=== PATIENT | male | born 1960 | race Caucasian/White ===

== ENCOUNTER 2019-03-17 11:26 | Inpatient (IN) ==
[2019-03-17] MEDS ORDERED: NS 1,000 ML IV PRN (11:53)
--- NOTE | 2019-03-17 12:12 | Diag Imaging Result Doc PS360 ---
CHEST-PORTABLE - 03/17/2019 INDICATION: stroke like symptoms COMPARISON: 05/25/2018 FINDINGS: There is a right central line in good position with the catheter tip at the lower SVC. There is probably some mild linear atelectasis in the left lung base. The lungs are clear. Heart size is normal. No pneumothorax or pleural effusion. IMPRESSION: No acute disease. Electronically signed by Mateo Knox 03/17/2019 12:09 PM
--- NOTE | 2019-03-17 12:39 | Diag Imaging Result Doc PS360 ---
CT HEAD W/O CONTRAST - 03/17/2019 INDICATION: stroke like symptoms COMPARISON: 05/25/2018 FINDINGS: The ventricles and sulci are normal in size and contour. No intracranial mass or hemorrhage. Stable moderate periventricular white matter chronic microvascular disease. There is an old lacunar in the left basal ganglia which was not present on previous exams. The skull is intact. The sinuses are clear. IMPRESSION: Chronic ischemic changes of the brain. Increasing stroke burden. No acute process. This exam was performed using automated exposure control, adjustment of mA or kV according to patient size, and/or use of iterative reconstruction technique Electronically signed by Mateo Knox 03/17/2019 12:37 PM
--- NOTE | 2019-03-17 12:43 | EKG Report ---
Test Performed on : 03/17/2019 11:39:16 AM Test Reason : Stroke like symptoms Blood Pressure : / mmHG Vent. Rate : 094 BPM Atrial Rate : 094 BPM P-R Int : 164 ms QRS Dur : 084 ms QT Int : 360 ms P-R-T Axes : 047 -21 055 degrees QTc Int : 450 ms Normal sinus rhythm. Normal ECG When compared with ECG of 05-AUG-2017 09:04, No significant change was found Unconfirmed Result
[2019-03-17 12:52] LABS: BASO# 0.04 X1000 (0.0-0.2); BASO% 0.5 % (0.0-0.8); EOS# 0.42 X1000 (0.0-0.7); EOS% 4.9 % (0.0-10.0); HEMATOCRIT 29.3 % (42.0-52.0); HEMOGLOBIN 10.3 g/dL (14.0-18.0); IMM GRAN# 0.02 X1000 (0.0-0.04); IMM GRAN% 0.2 % (0.0-0.5); LYMPH# 0.95 X1000 (1.2-3.4); LYMPH% 11.1 % (20.5-51.1); MCH 28.1 PG (27-31); MCHC 35.2 g/dL (33-37); MCV 80.1 FL (81-99); MONO# 0.93 X1000 (0.11-0.59); MONO% 10.9 % (1.7-9.3); MPV 10.9 FL (7.4-10.4); NEUT# 6.19 X1000 (1.4-6.5); NEUT% 72.4 % (42.2-75.2); PLT 216 X1000 (130-400); RBC 3.66 XMIL (4.7-6.1); WBC 8.55 X1000 (4.8-10.8)
[2019-03-17 13:15] LABS: INR 1.09; PROTIME 14.2 Seconds (11.0-16.0)
[2019-03-17 13:22] LABS: ALB/GLOB RATIO 1.7; CALCIUM 9.6 mg/dL (8.8-10.2); CREATININE 4.8 mg/dL (0.7-1.2); POTASSIUM 3.9 mmol/L (3.5-5.1); TOTAL BILIRUBIN 0.44 mg/dL (0.20-1.00); TOTAL PROTEIN 6.3 g/dL (6.3-8.3)
[2019-03-17] MEDS ORDERED: HUMULIN R IV ONE (13:52)
[2019-03-17] MEDS ORDERED: ASPIRIN PO ONE (14:07)
[2019-03-17 14:08] LABS: URINE SOURCE CLEAN CATCH
--- NOTE | 2019-03-17 14:10 | PROVIDER DOCUMENTATION ---
This chart was entered by Melina Echols Scribe, acting as scribe for Jeremi Hernández MD. HPI-Neurological Disorder - General Chief Complaint: Altered Mental Status Stated Complaint: CONFUSION Time Seen by Provider: 03/17/19 11:46 Source: patient, family (daughter) Allergies/Adverse Reactions: Patient Allergies Allergy/AdvReac Type Severity Reaction Status Date / Time No Known Allergies Allergy Verified 03/17/19 12:05 Home Medications: Home Medication List Medication Instructions Recorded Confirmed Last Taken Type Levothyroxine [Synthroid] 125 microgm PO DAILY 05/06/17 03/17/19 03/17/19 History Omeprazole [Prilosec] 20 mg PO DAILY@0700 08/05/17 03/17/19 03/17/19 History Losartan [Cozaar] 100 mg PO DAILY tablet 08/07/17 03/17/19 03/17/19 Rx ATORVAstatin [Lipitor] 40 mg PO QHS #30 tab 05/31/18 03/17/19 03/16/19 Rx Acetaminophen [Tylenol] 650 mg PO Q6H PRN PRN tablet 05/31/18 03/17/19 Unknown Rx Amlodipine [Norvasc] 10 mg PO DAILY #30 tab 05/31/18 03/17/19 03/17/19 Rx Bisacodyl [Dulcolax] 1 tab PO PRN PRN 03/17/19 03/17/19 03/17/19 History Cilostazol 1 tab PO BID 03/17/19 03/17/19 Unknown History Clopidogrel Bisulfate [Plavix] 1 tab PO DAILY 03/17/19 03/17/19 03/17/19 History Furosemide 2 tab PO BID 03/17/19 03/17/19 03/17/19 History Hydrocodone/Acetaminophen [[place] 1 tab PO TID PRN 03/17/19 03/17/19 03/17/19 History 10-325 Tablet] Insulin Humulin 70/30 [Humulin 40 unit SUBQ AC 03/17/19 03/17/19 Unknown History 70/30] Potassium Chloride 1 tab PO DAILY 03/17/19 03/17/19 03/17/19 History - History of Present Illness-Neuro Nature of Presenting Problem: Patient is a 58 year old male who presents with expressive aphasia. States aphasia started last night. Reports mild frontal headache. Daughter states patient has a history of CVA. Patient states similar symptoms with prior stroke. Denies weakness, numbness and tingling. Daughter states patient has not slept in 48 hours due to right foot pain. Daughter reports patient having a right femoral stent placed in [place] 3 weeks ago. Headache Location: reports: frontal Severity: reports: mild Onset/Duration: reports: last night Timing: reports: still present, improving Context: reports: impaired speech Character of Deficits: reports: impaired speech (expressive aphasia) Associated Symptoms: reports: headache Similar Symptoms Previously?: Yes Recently seen or treated by another doctor?: No Review of Systems - Adult - REVIEW OF SYSTEMS - ADULT Constitutional: reports: no symptoms reported. denies: chills, fever, fatique Eyes: reports: no symptoms reported Ears, Nose, Mouth & Throat: reports: no symptoms reported Cardiovascular: reports: no symptoms reported Respiratory: reports: no symptoms reported Gastrointestinal: reports: no symptoms reported Genitourinary: reports: no symptoms reported Musculoskeletal: reports: see HPI, other (right foot pain). denies: back pain, neck pain Integumentary: reports: no symptoms reported Neurological: reports: see HPI, headache/migraines (GUERRERO), other (expressive aphasia). denies: dizziness/vertigo Psychiatric: reports: no symptoms reported Endocrine: reports: no symptoms reported Hematologic/Lymphatic: reports: no symptoms reported Allergic/Immunologic: reports: no symptoms reported All Other Systems: Reviewed and Negative Past History - Adult - PAST MEDICAL HISTORY-ADULT Review of Records: reports: Old Records Reviewed, Social history reviewed & non-contributory. Major Childhood Illnesses: reports: denies history Cardiovascular: reports: HTN, hyperlipidemia Respiratory: reports: denies history Gastrointestinal: reports: denies history Obstetrical/Gynecological: reports: denies history Genitourinary: reports: denies history Musculoskeletal: reports: denies history Neurological: reports: CVA Endocrine/Immune: reports: Diabetes, thyroid disorder Other Conditions: reports: denies history - PRIOR SURGERIES/PROCEDURES Surgical/Procedure History: reports: appendectomy, tonsillectomy, orthopedic (extremity) - IMMUNIZATION STATUS Childhood Immunizations: See Nurse Assessment Flu Vaccine: See Nurse Assessment - FAMILY HISTORY Family History: reviewed, not pertinent - SOCIAL HISTORY Smoking: chew, less than 1 pack/day Provider spent 3-5 mins advising pt. on dangers of tobacco.: Discussed manners to quit use, and f/u contacts for add'l counseling. Substance Use: denies Physical Exam- Neurological - Physical Exam-Neuro Initial Vital Signs Reviewed: Yes General Appearance: alert, no apparent distress. negative: lethargic Eye Exam: bilateral eye: normal inspection, PERRL, EOMI HENMT: normocephalic/atraumatic, moist mucous membranes. negative: angioedema Head Injury: no evidence of injury. negative: active bleeding, ecchymosis Respiratory: chest non-tender, lungs clear, normal breath sounds. negative: crackles, rhonchi, stridor Cardiovascular: normal peripheral pulses, regular rate, rhythm. negative: tachycardia Abdominal Exam: normal bowel sounds, non tender, soft. negative: guarding Extremity: other (healing skin ulcer to right 2nd toe.). 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 negative: facial droop Motor/Sensory: no motor deficit, no sensory deficit. negative: pronator drift (R), pronator drift (L) Neurologic: no motor/sensory deficits, aphasia (expressive). negative: motor weakness, sensory deficit Psych/Mental Status: normal mood/affect. negative: anxious, paranoid Progress - PLAN OF CARE/RESULTS Progress/Plan/Lab Results: Vital Signs - 8 hr 03/17/19 11:30 03/17/19 11:47 03/17/19 11:48 Temperature 97.6 F Pulse Rate 79 Respiratory Rate 20 Blood Pressure 194/100 184/98 O2 Sat by Pulse Oximetry 100 99 100 03/17/19 12:00 03/17/19 12:01 03/17/19 12:23 Temperature Pulse Rate 92 H 94 H 91 H Respiratory Rate 24 19 12 Blood Pressure 163/85 178/83 O2 Sat by Pulse Oximetry 100 98 98 03/17/19 12:31 Temperature Pulse Rate 89 Respiratory Rate 19 Blood Pressure 171/90 O2 Sat by Pulse Oximetry 98 Laboratory Results - last 24 hr 03/17/19 03/17/19 03/17/19 11:35 12:38 12:38 WBC 8.55 RBC 3.66 L Hgb 10.3 L Hct 29.3 L MCV 80.1 L MCH 28.1 MCHC 35.2 RDW Std Deviation 13.0 Plt Count 216 MPV 10.9 H Immature Gran % (Auto) 0.2 Neut % (Auto) 72.4 Lymph % (Auto) 11.1 L Riley % (Auto) 10.9 H Eos % (Auto) 4.9 Baso % (Auto) 0.5 Immature Gran # (Auto) 0.02 Neut # (Auto) 6.19 Lymph # (Auto) 0.95 L Riley # (Auto) 0.93 H Eos # (Auto) 0.42 Baso # (Auto) 0.04 PT INR PTT (Actin FS) Sodium 137 Potassium 3.9 Chloride 100 Carbon Dioxide 19 L Anion Gap 18 BUN 53 H Creatinine 4.8 H Estimated GFR/1.73 m2 13 BUN/Creatinine Ratio 11 Glucose 323 H POC Glucose 309 H D Calculated Osmolality 301 Calcium 9.6 Total Bilirubin 0.44 AST 16 ALT 14 Alkaline Phosphatase 98 Troponin T Total Protein 6.3 Albumin 4.0 Globulin 2.3 Albumin/Globulin Ratio 1.7 Urine Source Urine Color Urine Turbidity Urine pH Ur Specific [place] Urine Protein Ur Glucose (Stick) Ur Ketones (Stick) Urine Blood Urine Nitrite Urine Bilirubin Urobilinogen Dipstick Urine Leukocytes Urine WBC (Auto) Urine RBC (Auto) U Epithel Cells (Auto) Urine Bacteria (Auto) Urine Crystals Small Round Cells Urine Casts Urine Yeast-like Cells Urine Opiates Screen Ur Oxycodone Screen Ur Methadone, Qual Ur Barbiturates Screen Ur Phencyclidine Scrn Ur Amphetamines Screen U Benzodiazepines Scrn Urine Cocaine Screen U Cannabinoids Screen 03/17/19 03/17/19 03/17/19 12:38 12:38 14:03 WBC RBC Hgb Hct MCV MCH MCHC RDW Std Deviation Plt Count MPV Immature Gran % (Auto) Neut % (Auto) Lymph % (Auto) Riley % (Auto) Eos % (Auto) Baso % (Auto) Immature Gran # (Auto) Neut # (Auto) Lymph # (Auto) Riley # (Auto) Eos # (Auto) Baso # (Auto) PT 14.2 INR 1.09 PTT (Actin FS) 29.0 Sodium Potassium Chloride Carbon Dioxide Anion Gap BUN Creatinine Estimated GFR/1.73 m2 BUN/Creatinine Ratio Glucose POC Glucose Calculated Osmolality Calcium Total Bilirubin AST ALT Alkaline Phosphatase Troponin T 0.045 Total Protein Albumin Globulin Albumin/Globulin Ratio Urine Source CLEAN CATCH Urine Color YELLOW Urine Turbidity CLEAR Urine pH 6.0 Ur Specific [place] 1.009 Urine Protein 70 A Ur Glucose (Stick) 300 A Ur Ketones (Stick) NEGATIVE Urine Blood SMALL A Urine Nitrite NEGATIVE Urine Bilirubin NEGATIVE Urobilinogen Dipstick NORMAL Urine Leukocytes NEGATIVE Urine WBC (Auto) <10 Urine RBC (Auto) <10 U Epithel Cells (Auto) <10 Urine Bacteria (Auto) NEGATIVE Urine Crystals NONE SEEN Small Round Cells Not Reportable Urine Casts NONE SEEN Urine Yeast-like Cells NONE SEEN Urine Opiates Screen Ur Oxycodone Screen Ur Methadone, Qual Ur Barbiturates Screen Ur Phencyclidine Scrn Ur Amphetamines Screen U Benzodiazepines Scrn Urine Cocaine Screen U Cannabinoids Screen 03/17/19 14:03 WBC RBC Hgb Hct MCV MCH MCHC RDW Std Deviation Plt Count MPV Immature Gran % (Auto) Neut % (Auto) Lymph % (Auto) Riley % (Auto) Eos % (Auto) Baso % (Auto) Immature Gran # (Auto) Neut # (Auto) Lymph # (Auto) Riley # (Auto) Eos # (Auto) Baso # (Auto) PT INR PTT (Actin FS) Sodium Potassium Chloride Carbon Dioxide Anion Gap BUN Creatinine Estimated GFR/1.73 m2 BUN/Creatinine Ratio Glucose POC Glucose Calculated Osmolality Calcium Total Bilirubin AST ALT Alkaline Phosphatase Troponin T Total Protein Albumin Globulin Albumin/Globulin Ratio Urine Source Urine Color Urine Turbidity Urine pH Ur Specific [place] Urine Protein Ur Glucose (Stick) Ur Ketones (Stick) Urine Blood Urine Nitrite Urine Bilirubin Urobilinogen Dipstick Urine Leukocytes Urine WBC (Auto) Urine RBC (Auto) U Epithel Cells (Auto) Urine Bacteria (Auto) Urine Crystals Small Round Cells Urine Casts Urine Yeast-like Cells Urine Opiates Screen PRESUMPTIVE POSITIVE A Ur Oxycodone Screen NONE DETECTED Ur Methadone, Qual NONE DETECTED Ur Barbiturates Screen NONE DETECTED Ur Phencyclidine Scrn NONE DETECTED Ur Amphetamines Screen NONE DETECTED U Benzodiazepines Scrn NONE DETECTED Urine Cocaine Screen NONE DETECTED U Cannabinoids Screen NONE DETECTED Orders Category Date Time Status Bladder Scan and Record Result ORDERED Care 03/17/19 14:07 Active Cardiac Monitoring DIRECTED Care 03/17/19 11:54 Active Finger Stick Blood Sugar (ED) DIRECTED Care 03/17/19 11:54 Completed Oxygen Therapy- ED Nursing DIRECTED Care 03/17/19 11:54 Active Saline Loc NOW Care 03/17/19 11:54 Active CHEST-PORTABLE [RAD] Stat Exams 03/17/19 11:[address] HEAD W/O CONTRAST [CT] Stat Exams 03/17/19 11:54 Completed CBC WITH ELECTRONIC DIFF [HEME] Stat Lab 03/17/19 12:38 Completed COMPREHENSIVE METABOLIC PANEL [CHEM] Stat Lab 03/17/19 12:38 Completed PROTIME WITH INR [COAG] Stat Lab 03/17/19 12:38 Completed PTT [COAG] Stat Lab 03/17/19 12:38 Completed TROPONIN T Stat Lab 03/17/19 12:38 Completed URINALYSIS W/POSS RFLX CULT [URINALYSIS] Stat Lab 03/17/19 14:03 Completed URINE DRUG SCREEN Stat Lab 03/17/19 14:03 Completed URINE MANUAL MICROSCOPIC [URINALYSIS] Stat Lab 03/17/19 14:03 Completed 0.9% Sodium Chloride Inj [Ns] 1,000 ml Med 03/17/19 11:53 Active IV 125 mls/hr Aspirin Med 03/17/19 14:07 Discontinued 325 mg PO NOW ONE Insulin Human Regular [Humulin R] Med 03/17/19 13:52 Discontinued 10 unit IV NOW ONE EKG [EKG] Stat Ther 03/17/19 11:54 Draft Result Diagrams: 03/17/19 12:38 03/17/19 12:38 - EKG 1 Time of EKG reading by physician:: 11:39 EKG Read and Signed by:: Jeremi Hernández EKG Interpretation (*Must complete 3 of following elements*): Normal Rate: 94 Rhythm: normal sinus rhythm [place]: normal QRS: normal MT Interval: normal ST Wave: normal Comments: normal ECG - XRAY 1 XRAY Study: Chest Impression: See EMR Report ( CHEST-PORTABLE - 03/17/2019 INDICATION: stroke like symptoms COMPARISON: 05/25/2018 FINDINGS: There is a right central line in good position with the catheter tip at the lower SVC. There is probably some mild linear atelectasis in the left lung base. The lungs are clear. Heart size is normal. No pneumothorax or pleural effusion. IMPRESSION: No acute disease. Electronically signed by Mateo Knox 03/17/2019 12:09 PM 03/17/19 1209 Interpreting Physician: Mateo Knox MD Dictated Date/Time: 03/17/19 1203 cc: Jeremi Hernández MD; Ez Ordonez MD) - CT/MRI 1 CT Study: Head Impression: See EMR Report (Signed CT HEAD W/O CONTRAST - 03/17/2019 INDICATION: stroke like symptoms COMPARISON: 05/25/2018 FINDINGS: The ventricles and sulci are normal in size and contour. No intracranial mass or hemorrhage. Stable moderate periventricular white matter chronic microvascular disease. There is an old lacunar in the left basal ganglia which was not present on previous exams. The skull is intact. The sinuses are clear. IMPRESSION: Chronic ischemic changes of the brain. Increasing stroke burden. No acute process. This exam was performed using automated exposure control, adjustment of mA or kV according to patient size, and/or use of iterative reconstruction technique Electronically signed by Mateo Knox 03/17/2019 12:37 PM 03/17/19 1237 Interpreting Physician: Mateo Knox MD Dictated Date/Time: 03/17/19 1235 cc: Jeremi Hernández MD; Ez Ordonez MD) - CONSULTS/PCP/HOSPITALIST Notification #1 *Consult/PCP/Hospitalist*: Lavinia Haddad MANAGEMENT ASSISTANT for Hospitalist Time Discussed: 14:08 Consult Disposition: Will see in ED, Admit Departure - Departure Date of Disposition Decision: 03/17/19 Time of Disposition Decision: 13:53 DIAGNOSIS: TIA (transient ischemic attack), Anemia, ARF (acute renal failure), Uncontrolled diabetes mellitus, HTN (hypertension) Disposition: ADMITTED INPATIENT 09 Certified Medical Emergency: Emergent Condition: Fair Referrals and Follow-Ups: Ez Ordonez MD [Primary Care Provider] - - Critical Care Note This patient required my direct & personal management of CC.: No Attestation - Physician/ FABI Attestation Patient care was provided by Advanced Practice Provider:: No The physician spent face to face time with patient:: Yes Advanced Practice Provider documentation review:: Supervising physician onsite and consulted in the evaluation and care of this patient. The physician did have a face to face encounter with the patient. - NIH Stroke Scale Level of Consciousness: 0-Alert LOC Questions (ask month and age): 0-Answers Both Correctly LOC Commands (ask to open & close eyes;make a fist, let go): 0-Obeys Both Correctly Best Gaze (horizontal eye movement): 0-Normal Visual (use finger movement, counting or visual threat): 0-No Visual Loss Facial Palsy (show teeth or raise eyebrows & close eyes tght: 0-Symmetrical Movement Motor Function-left arm: 0-Normal Motor Function-right arm: 0-Normal Motor Function-left le-Normal Motor Function-right le-Normal Limb Ataxia([id number], or heel to charles): 0-No Ataxia Sensory(pin prick to face,arms,trunk,legs-compare side/side): 0-No Ataxia Best Language(name item/read sentence.Ex-Down to Earth): 1-Mild to Moderate Aphasia Dysarthria(Pt read words or say words Ex.Mama,Tip-Top,Thanks: 0-Normal Articulation Extinction and Inattention: 0-Normal Stroke tPA Guidelines - Inclusion Criteria for IV tPA Onset <3 hours ago *OR* 3-4.5 hours ago: No This chart was documented by the indicated scribe, (Melina Echols, Maninder) and accurately reflects the services I performed and decisions made by me, Jeremi Hernández MD, as attested by the provider's signature.
[2019-03-17 14:11] LABS: BILIRUBIN URINE NEGATIVE (NEGATIVE); BLOOD URINE SMALL (NEGATIVE); COLOR YELLOW; GLUCOSE URINE 300 mg/dL (NEGATIVE); KETONE URINE NEGATIVE (NEGATIVE); LEUKOCYTES URINE NEGATIVE (NEGATIVE); NITRITE URINE NEGATIVE (NEGATIVE); PROTEIN URINE 70 mg/dL (NEGATIVE); SP GRAVITY URINE 1.009; TURBIDITY URINE CLEAR (CLEAR); UROBILINOGEN URINE NORMAL (NORMAL)
[2019-03-17 14:13] LABS: UR EPITHELIAL CELLS <10 /HPF (<10); URINE BACTERIA NEGATIVE /HPF; URINE RBC <10 /HPF (<10); URINE WBC <10 /HPF (<10)
[2019-03-17 14:24] LABS: URINE CASTS NONE SEEN; URINE CRYSTALS NONE SEEN; URINE YEAST NONE SEEN
[2019-03-17 14:34] LABS: UR AMPHETAMINES QUAL NONE DETECTED (NONE DETECT); UR BARBITUATES QUAL NONE DETECTED (NONE DETECT); UR BENZODIAZEPIN QUAL NONE DETECTED (NONE DETECT); UR CANNABINOIDS QUAL NONE DETECTED (NONE DETECT); UR COCAINE QUAL NONE DETECTED (NONE DETECT); UR METHADONE QUAL NONE DETECTED (NONE DETECT); UR OPIATES QUAL PRESUMPTIVE POSITIVE (NONE DETECT); UR OXYCODONE QUAL NONE DETECTED (NONE DETECT); UR PCP QUAL NONE DETECTED (NONE DETECT)
[2019-03-17] MEDS ORDERED: ZOFRAN IV ONE (15:14)
[2019-03-17] MEDS ORDERED: DILAUDID IV ONE (15:14)
[2019-03-17 16:36] LABS: UR CREAT RANDOM 54.2 mg/dL (14-26); UR PROT RANDOM 46.3 mg/dL
[2019-03-17] MEDS: HUMALOG SUBQ SCH ×2 (17:31→22:02)
[2019-03-17] MEDS: NS 1,000 ML IV SCH (17:32)
[2019-03-17] MEDS ORDERED: MISC. PHARMACY COMMUNICATION SCH (18:00)
[2019-03-17] MEDS: NORCO-7.5 PO PRN (18:53)
[2019-03-17] MEDS: MAXIPIME 1 GM in NS 50 ML IV SCH (21:54)
[2019-03-17] MEDS: FLOMAX PO SCH (21:54)
[2019-03-17] MEDS: ZYVOX PO SCH (21:54)
--- NOTE | 2019-03-17 22:53 | HISTORY AND PHYSICAL ---
ADDENDUM: I saw the patient [id number] and fully agree with the assessment and plan of nurse practitioner, Lavinia Stallings. This is a 58-year-old gentleman who 3 weeks ago had right femoral artery stent placement by Dr. Bruce and has been getting IV antibiotics through [facility] for infected ulcers as well as bacteremia on blood cultures found positive at [facility]. We do not have access to those blood cultures at this time, however. Since then, he has been getting cefepime and vancomycin that was changed to daptomycin after his renal function started getting worse. On 02/27/2019, his creatinine levels were found to be 1.1 and then gradually worsened to 2.9 on March 13, 3.6 on March 16 yesterday and 4.8 today. He appears to be dry, and I believe acute kidney injury could be multifactorial with a hypovolemia as well as vancomycin associated. He also had a stent in the right femoral artery. Although I do not palpate the dorsalis pedis very well in his right foot, the popliteal artery is palpable, and right foot is very warm to touch. He will receive judicious IV fluids, and we have consulted Dr. Ezra Metzger from infectious diseases who has recommended him to be treated with cefepime and Zyvox while we get those culture results from [facility]. I am also going to place a call to his vascular surgeon, Dr. Bruce, for whom Dr. Dodge is covering tonight. We will let them know of the patient's condition since the patient's has indicated that they want to be transferred to [facility] in case they need any procedures to be done. Meanwhile, we are also going to consult Dr. Aguila from Nephrology service to further assist us in taking care of this nice gentleman. Further recommendations will be given as per hospital course. cc: Zulma Gerardo MD
--- NOTE | 2019-03-17 23:41 | HISTORY AND PHYSICAL ---
CHIEF COMPLAINT: Increased confusion, trouble speaking. HISTORY OF PRESENT ILLNESS: This is a 58-year-old gentleman with a history of hypertension, CVA, hypothyroid, diabetes mellitus type 1, peripheral neuropathy and persistent ulcers right. who is 3 weeks status post right femoral stent placement in [place].. Most of the history is taken from the daughter as the patient does have expressive aphasia and he does change subjects frequently during a conversation. The daughter reports increasing expressive aphasia as well as random thoughts. The daughter states that Mr. Young has not slept in 48 hours and he did not sleep well for a few nights prior to that. She began to notice a change in his speech during the day yesterday and last night. She stated that he had aphasia similar to when he had a stroke about 10 years ago. They denied any facial drooping, any change in his walking, difficulty swallowing or any change in strength of extremities. Mr. Young was discharged from [facility] approximately 3 weeks ago after having positive cultures on IV Vancomycin and Cefepime. She is unaware of the source of the culture. His creatinine was being monitored by home health infusion. He had a creatinine of 1.4 on 03/06, on 03/13 creatinine of 2.9, on 03/16 creatinine was 3.6 and today creatinine is 4.8. The daughter states that last week they changed him from vancomycin to daptomycin due to rising Creatnine. She reports "a huge reaction turning red and itching all over." after the first dose. PAST MEDICAL HISTORY: Hypertension, diabetes mellitus, left basal ganglia infarct in May 2018, diabetes mellitus type 1 poor control, peripheral neuropathy, hypothyroid, gastroesophageal reflux disease. PAST SURGICAL HISTORY: Appendectomy, left shoulder surgery, right knee surgery and right femoral artery stent. SOCIAL HISTORY: He lives at home. Denies alcohol, tobacco, or illicit drug use. ALLERGIES: Benadryl and promethazine with unknown reaction. Daptomycin caused redness and itching. REVIEW OF SYSTEMS: Discussed with the patient with pertinent positives stated in the HPI. He denied any syncope or dizziness, any chest pain or palpitations, any nausea, vomiting, diarrhea, constipation, black or bloody vomitus or stools, hematuria, dysuria, frequency, urgency. PHYSICAL EXAMINATION: GENERAL: This is a 58-year-old gentleman who is lying on the stretcher in the emergency room in no distress. VITAL SIGNS: Blood pressure is 149/68 with heart rate of 88, respirations 18, temperature 98.6 degrees with room air saturations 98 to 100. CARDIOVASCULAR: Regular rate and rhythm. S1 and S2 appreciated. He has no murmur. PULMONARY: Breath sounds are clear with no increased work of breathing noted. GASTROINTESTINAL: Soft, nontender, nondistended. Bowel sounds in all 4 quadrants. GENITOURINARY: He has no CVA or suprapubic tenderness. SKIN: Warm and dry. He does have ulcers noted between his 2nd and 3rd toes. LABS: WBC is 8.5 with hemoglobin 10.3, hematocrit 29.3, and platelets 216,000. Sodium 137, potassium 3.9, BUN 53, creatinine 4.8 with a glucose of 323. Urinalysis is essentially negative. Urine drug screen is presumptive positive for opiates. CT of the head revealed chronic ischemic change of the brain, increasing stroke burden. No acute process. Chest x-ray revealed no acute disease. ASSESSMENT AND PLAN: 1. Transient ischemic attack. 2. Anemia. 3. Acute renal failure presumed secondary to vancomycin and/or urine retention. 4. Uncontrolled diabetes mellitus. 5. Hypertension. 6. Recent right femoral stent placement. 7. Urine retention PLAN: The patient will be admitted to the hospital, placed on telemetry with neurovascular checks every 4 hours to his right lower extremity, pattern blood glucose with sliding scale insulin. I did speak with Dr. Ezra Metzger regarding the patient's antibiotic regimen. Will start Zyvox 600 mg p.o. q.12 hours as well as cefepime dosed per pharmacy for renal dosing. IV hydration. check urine electrolytes. Hold any renal toxic medications and renal dose needed medications accordingly. Bladder scan was [address] Zayas catheter as part of his renal profile, a TSH and a CBC in the morning. identify his home medications and continue as appropriate. Plan discussed with Dr. Gerardo. Further treatments pending hospital course. Dictated by KWABENA Penny for Zulma Gerardo MD cc: KWABENA Penny MD [facility]
[2019-03-18] MEDS: NORCO-7.5 PO PRN ×2 (06:22→11:39)
[2019-03-18] MEDS: HUMALOG SUBQ SCH (06:52)
[2019-03-18 07:04] LABS: BASO# 0.04 X1000 (0.0-0.2); BASO% 0.5 % (0.0-0.8); EOS# 0.37 X1000 (0.0-0.7); EOS% 4.6 % (0.0-10.0); HEMATOCRIT 29.7 % (42.0-52.0); HEMOGLOBIN 10.2 g/dL (14.0-18.0); IMM GRAN# 0.02 X1000 (0.0-0.04); IMM GRAN% 0.2 % (0.0-0.5); LYMPH% 16.2 % (20.5-51.1); MCH 28.1 PG (27-31); MCHC 34.3 g/dL (33-37); MCV 81.8 FL (81-99); MONO# 0.87 X1000 (0.11-0.59); MONO% 10.8 % (1.7-9.3); MPV 11.2 FL (7.4-10.4); NEUT# 5.42 X1000 (1.4-6.5); NEUT% 67.7 % (42.2-75.2); PLT 208 X1000 (130-400); RBC 3.63 XMIL (4.7-6.1); RDW 13.2 % (11.5-14.5); WBC 8.02 X1000 (4.8-10.8)
[2019-03-18 07:32] LABS: ALBUMIN 3.6 g/dL (3.5-5.0); CALCIUM 9.1 mg/dL (8.8-10.2); CREATININE 4.8 mg/dL (0.7-1.2); PHOSPHORUS 4.3 mg/dL (2.7-4.5); POTASSIUM 3.7 mmol/L (3.5-5.1)
[2019-03-18] MEDS ORDERED: STERILE WATER INJ. INJ ONE (08:08)
[2019-03-18] MEDS: ZYVOX PO SCH ×2 (09:07→20:37)
[2019-03-18] MEDS: GEODON IM ONE ×2 (09:11→18:43)
[2019-03-18] MEDS: NS 1,000 ML IV SCH ×3 (09:13→15:31)
--- NOTE | 2019-03-18 10:19 | Diag Imaging Result Doc PS360 ---
US RENAL 2 (RETROPER) COMPLETE - 03/18/2019 INDICATION: Acute kidney injury TECHNIQUE: COMPARISON: 08/06/2017 FINDINGS: There are numerous heterogeneous shadowing echogenicities throughout the kidneys bilaterally. These are felt most likely to be artifact. There is no hydronephrosis. Renal sizes are normal. The right kidney measures 12.7 x 6.8 x 6.8 cm. The left kidney measures 12.9 x 5.5 x 7 cm. Urinary bladder appears normal. IMPRESSION: Probably artifactual hyperechogenicity throughout the kidneys. No obstruction. Electronically signed by Mateo Knox 03/18/2019 10:17 AM
[2019-03-18 11:46] LABS: ALLEN TEST YES; BE -5.9 mmoll (-3.0-3.0); BLOOD TYPE ARTERIAL; HCO3-(ACT) 20.3 mmoll (20.0-26.0); METHB 0.5 % (0.0-1.5); O2(CT) 13.9 mL/dL (15.0-23.0); O2HB 97.3 % (95.0-99.0); PCO2(98.6) 30 mmHg (35-45); PO2(98.6) 87 mmHg (60-100); SAMPLE BLOOD; SAO2 99.3 % (95.0-100.0); THB 10.1 g/dL (11.5-17.4); pH(98.6) 7.39 (7.35-7.45)
[2019-03-18] MEDS: HEPARIN SUBQ SCH ×2 (11:46→20:37)
[2019-03-18] MEDS: PLAVIX PO SCH (11:46)
[2019-03-18 11:47] LABS: MODALITY ROOM AIR
[2019-03-18 12:00] LABS: HEMOGLOBIN A1C 7.6 % (4.8-6.0)
[2019-03-18] MEDS ORDERED: PERCOCET-10 PO PRN (12:36)
[2019-03-18] MEDS: HUMULIN R SUBQ SCH ×2 (17:18→21:00)
--- NOTE | 2019-03-18 17:26 | ECHO REPORT ---
ORDER DATE: 03/18/2019 INDICATION: Stroke. REQUESTING PHYSICIAN: Hospitalist. M-MODE MEASUREMENTS: Left ventricle end diastole: 4.8. Left ventricle end systole: 2.4. Posterior wall: 1.9. Interventricular septum: 1.9. Left atrium: 3.5. Aortic diameter: 3.3. SUMMARY OF 2-DIMENSIONAL IMAGIN. Left ventricular function is normal. Ejection fraction is 65%. The chamber is not dilated. 2. The aortic valve looks normal. Color flow mapping unremarkable. 3. The mitral valve looks normal. Color flow mapping unremarkable. 4. Pulsed wave Doppler of mitral inflow shows mild reversal of the E/A ratio. The ratio is 0.8. 5. Tissue Doppler of septal and lateral mitral annulus averages 13 cm. There is no diastolic dysfunction. 6. The pulmonic valve is normal. Color flow mapping unremarkable. 7. The tricuspid valve looks normal. Color flow mapping shows no significant regurgitation. Pulmonary pressure cannot be calculated here. 8. Pulmonary venous flow is normal. 9. There is no pericardial effusion, masses, or thrombus. SUMMARY: This study shows: 1. Normal left ventricular systolic function. 2. No evidence of significant valvular abnormality. 3. Pulmonary pressure is probably normal. 4. No diastolic dysfunction. Clinical correlation recommended. cc: MD Zahra Larson MD
[2019-03-18] MEDS ORDERED: MORPHINE IV ONE (20:23)
[2019-03-18] MEDS: MAXIPIME 1 GM in NS 50 ML IV SCH (20:37)
[2019-03-18] MEDS: FLOMAX PO SCH (20:37)
[2019-03-18] MEDS: LIPITOR PO SCH (20:37)
[2019-03-18] MEDS ORDERED: LEVEMIR SUBQ SCH (21:00)
--- NOTE | 2019-03-18 21:31 | NEPHROLOGY CONSULTATION ---
DATE: 03/18/2019 REASON FOR CONSULTATION: Acute kidney injury. HISTORY OF PRESENT ILLNESS: Mr. Young is a 58-year-old white male with longstanding diabetes complicated by retinopathy. He states he has never before been told of kidney disease. He follows routinely with Dr. Ordonez. He had dry gangrene of the right foot and underwent a percutaneous revascularization of the right leg in [place]. He states he was discharged from the hospital on antibiotics. He describes them as "bull balls." At any rate, he was confused and agitated at home and having nightmares and what sounds like hallucinations and because of this he came to the hospital and was subsequently admitted. His initial evaluation disclosed abnormal kidney function that has been present for several days. Baseline creatinine 1.0 back in December. 1.4 on March 06 and his creatinine has risen progressively since that time. He is not aware of any hypotension. He is not aware of any new rashes except for the gangrene on his foot. PAST MEDICAL HISTORY: As above. He also has hypertension, history of CVA, hypothyroidism, reflux. HOME MEDICATIONS: Include levothyroxine, omeprazole, losartan, atorvastatin, acetaminophen, amlodipine, furosemide, hydrocodone, potassium, Dulcolax, cilostazol, clopidogrel, insulin. ALLERGIES: Daptomycin, diphenhydramine, promethazine. SOCIAL HISTORY: He lives with his daughter. FAMILY HISTORY: Noncontributory. REVIEW OF SYSTEMS: Noncontributory. PHYSICAL EXAMINATION: Vital Signs: Blood pressure 172/71, heart rate 97, afebrile. General: No acute distress. Skin: Warm and dry. Conjunctivae are pink. Neck: Neck veins are not appreciated. Heart: Regular. No gallops. Lungs: Equal. No crackles or wheezes. Abdomen: Soft, nontender. Bowel sounds present. No organomegaly. Extremities: No edema, clubbing or cyanosis. The right foot is dressed and he has multiple dry eschars. Neurologic: Nonfocal with the exception of his occasional distractibility and loss of focus on the conversation. Again, he admits to ongoing hallucination. IMPRESSION: Acute kidney injury. Likely nephrotoxic acute tubular necrosis secondary to vancomycin. Certainly he is at risk for contrast-induced nephropathy as well. He has good urine output. He does not appear hypovolemic on exam. Modest metabolic acidosis. I have reviewed his medications and no changes are required at this time. I counseled the patient that he may require renal replacement therapy before recovery occurs. Overall, he has a good prognosis for renal recovery. cc: Adolfo Aguila MD
[2019-03-18] MEDS ORDERED: COREG PO ONE (21:48)
[2019-03-18] MEDS: NORCO-10 PO PRN (22:00)
--- NOTE | 2019-03-18 23:01 | PROGRESS NOTE ---
DATE: 03/18/2019 SUBJECTIVE: The patient is resting in bed. Earlier today he was having visual hallucinations. OBJECTIVE: Vital signs: Temperature 98.4 degrees, blood pressure 204/80, heart rate 96, respirations 20, O2 saturations 100% on room air. Intake 1.6 L. Output 1.1 L. General: This is a chronically ill-appearing, middle-aged, male lying in bed, in no acute distress. Heart: S1, S2 normal. Regular rate and rhythm. Lungs: Clear to auscultation bilaterally. Abdomen: Positive bowel sounds. Soft, nontender, nondistended. Extremities: The patient has a black eschar on the tip of his left great toe, and also black eschar on the 2nd toe of the left foot. No edema noted. Neurologic: The patient is alert and oriented x3. LABS: White blood cell count 8, hemoglobin 10, hematocrit 29, platelets 208,000. Sodium 139, potassium 3.7, chloride 105, CO2 of 15, BUN 51, creatinine 4.8. Glucose 203. A1c 7.6. ASSESSMENT AND PLAN: 1. Delirium. The patient appears to be alert and oriented; however, he does have periods of hallucinations. His initial CT of the head was noted to be unremarkable. We will monitor the patient's mental status closely for improvement. We will avoid sedating medications. Will also treat the underlying metabolic issues. 2. Acute kidney injury. The patient had exposure to multiple antibiotics that may be nephrotoxic as well as IV contrast exposure. Will continue to monitor the renal function closely. Further recommendations to follow from the leaf stamper. 3. Uncontrolled insulin-dependent diabetes mellitus. Will increase the patient's Levemir dosage and continue with sliding scale insulin coverage. 4. Hypertension. We will start the patient on Coreg. 5. Status post right femoral stent placement. Stable. 6. Right foot cellulitis. The patient is currently on cefepime. Will consult ID for further recommendations regarding antibiotic therapy. 7. Peripheral arterial disease. Aware. Continue on Plavix. 8. Deep vein thrombosis prophylaxis. Continue on heparin. cc: MD TILA Agudelo
[2019-03-19] MEDS: NS 1,000 ML IV SCH ×2 (00:34→08:21)
[2019-03-19] MEDS: NORCO-10 PO PRN ×5 (01:56→21:56)
[2019-03-19 06:50] LABS: HEMATOCRIT 27.2 % (42.0-52.0); HEMOGLOBIN 9.2 g/dL (14.0-18.0); MCH 28.1 PG (27-31); MCHC 33.8 g/dL (33-37); MCV 83.2 FL (81-99); RBC 3.27 XMIL (4.7-6.1); RDW 13.1 % (11.5-14.5); WBC 6.31 X1000 (4.8-10.8)
[2019-03-19] MEDS: HUMULIN R SUBQ SCH ×4 (06:59→21:59)
[2019-03-19 07:33] LABS: ALBUMIN 3.7 g/dL (3.5-5.0); CREATININE 4.7 mg/dL (0.7-1.2); PHOSPHORUS 4.2 mg/dL (2.7-4.5); POTASSIUM 3.7 mmol/L (3.5-5.1)
[2019-03-19] MEDS: PLAVIX PO SCH (08:22)
[2019-03-19] MEDS: ZYVOX PO SCH ×2 (08:22→20:23)
[2019-03-19] MEDS: HEPARIN SUBQ SCH ×2 (08:22→20:24)
[2019-03-19] MEDS: SYNTHROID PO SCH (08:22)
[2019-03-19] MEDS: LEVEMIR SUBQ SCH (08:23)
--- NOTE | 2019-03-19 08:54 | EKG Report ---
Test Performed on : 03/19/2019 08:41:10 AM Test Reason : chest pain Blood Pressure : / mmHG Vent. Rate : 104 BPM Atrial Rate : 104 BPM P-R Int : 164 ms QRS Dur : 072 ms QT Int : 348 ms P-R-T Axes : 128 -30 -85 degrees QTc Int : 457 ms Unusual P axis, possible ectopic atrial tachycardia. Left axis deviation Nonspecific ST and T wave abnormality Abnormal ECG When compared with ECG of 17-MAR-2019 11:39, (Unconfirmed) Ectopic atrial rhythm. has replaced Sinus rhythm. ST now depressed in Anterolateral leads Nonspecific T wave abnormality now evident in Inferior leads Confirmed by Diamante ROWLEY, Ferny Pool ([id number]) on 03/20/2019 8:05:02 AM
[2019-03-19] MEDS ORDERED: PLAVIX PO SCH (09:00)
[2019-03-19] MEDS ORDERED: COREG PO SCH (09:00)
[2019-03-19] MEDS ORDERED: MORPHINE IV ONE (09:06)
[2019-03-19] MEDS: 1/2 NS 1,000 ML IV SCH ×2 (11:10→20:19)
--- NOTE | 2019-03-19 16:21 | INFECTIOUS DISEASE CONSULT REP ---
DATE: 03/19/2019 CONCLUSION: I have been asked to see the patient regarding an infection in his right foot. He was being treated for it by physicians from [facility]. I called the microbiology laboratory as regarding cultures from the patient. They had only 1 blood culture, and it was negative. They do not have any culture from his right foot, which was thought to be infected. The patient initially was on vancomycin and cefepime, and he went into acute renal failure. Patient says he has been having diarrhea. I think this could possibly be due to Clostridium difficile. RECOMMENDATIONS: I agree with placing the patient on Zyvox and cefepime. The dose of cefepime has been modified because of the patient's renal failure. I am going to order a Clostridium difficile toxin and antigen. DISCUSSION: The patient was complaining of right foot pain and swelling. He was admitted to [facility] and underwent what sounds like an angioplasty to increase blood supply to his right foot. He was on vancomycin and cefepime as mentioned above, and he went into renal failure. DIAGNOSTIC STUDIES: Laboratory studies thus far show a CBC with a white count of 6310, hemoglobin 9.2, and platelet count 192,000. Creatinine is 4.7, GFR is 13. Liver function studies are normal. Drug screen was positive for opiates. Chest x-ray showed no acute disease. CT scan of the head showed chronic ischemic changes. PAST MEDICAL HISTORY/REVIEW OF SYSTEMS: Eyes and Ears: The patient does not appear to have any trouble seeing or hearing. Respiratory: He did not complain of cough or shortness of breath. Cardiac: No chest pain or palpitations. Gastrointestinal: As mentioned above, the patient said he has been having diarrhea for 1 month. Genitourinary: No dysuria or flank pain. Neurologic: No seizures. No change in motor or sensory function. PREVIOUS HOSPITALIZATIONS AND OPERATIONS: He has been admitted for what sounds like a transient ischemic attack, but may have been a full-blown stroke. He has had an appendectomy. He has had surgeries on his knee and shoulder, neither of which had replacement. He has had an appendectomy. He had a Lee line placed on the right side to get his antibiotics for his foot infection. He has also had ocular surgery, and he has had surgery for peripheral vascular disease. MEDICAL DISEASES: Positive for diabetes mellitus, hypertension, transient ischemic attack, and peripheral vascular disease. INFECTIOUS DISEASE HISTORY: Positive for pneumonia and foot infection. FAMILY HISTORY: Positive for diabetes mellitus and hypertension. SOCIAL HISTORY: [place] He has a dog as a pet. He lives alone. He dips snuff, but he does not drink alcoholic beverages or abuse drugs, and he does not smoke cigarettes. The patient says that he is disabled. PHYSICAL EXAMINATION: Vital Signs: Temperature is 99 degrees, pulse 89, respirations 20, blood pressure is 179/87. General: This is an ill-appearing middle-aged male. He is in no acute distress. Head, Eyes, Ears, Nose, and Throat: He can hear my spoken words and see near objects. I did not see any white coating on his tongue. Neck: No meningismus. Lungs: Clear to auscultation. Cardiovascular: Heart rate is regular. He had diminished peripheral pulses. Abdomen: Soft and not tender. Neurologic: The patient is awake. He can move his extremities. There is no tremor. His memory as regarding his medical history was decreased. Extremities: Right foot was tender. It was in it. He had some small ulcerated areas between his toes. It looked a little erythematous and swollen. Thank you for the consult. cc: Ezra Metzger MD
--- NOTE | 2019-03-19 16:23 | Diag Imaging Result Doc PS360 ---
FOOT 2 VIEWS RIGHT - 03/19/2019 INDICATION: cellulitis TECHNIQUE: COMPARISON: 01/31/2019 FINDINGS: No fracture or dislocation. No bony erosion. Stable severe peripheral vascular disease. IMPRESSION: No acute process. Electronically signed by Mateo Knox 03/19/2019 4:20 PM
--- NOTE | 2019-03-19 19:00 | PROGRESS NOTE ---
DATE: 03/19/2019 SUBJECTIVE: The patient was complaining of chest pain this morning. After receiving morphine, he stated that the chest pain had resolved. OBJECTIVE: Vital Signs: Temperature 97.8 degrees, blood pressure 196/94, heart rate 89, respirations 18, O2 saturation is 100% on room air. General: This is a chronically ill-appearing elderly male, lying in bed in no acute distress. Heart: S1, S2 normal, regular rate and rhythm. Lungs: Clear to auscultation bilaterally. No wheezing. No rales. No rhonchi. Abdomen: Positive bowel sounds. Soft, nontender, nondistended. Extremities: No edema, no cyanosis. The right foot has an eschar on the great toe and 2nd toe with some mild erythema. Neurologic: The patient is alert and oriented x3. LABORATORY DATA: Sodium 146, potassium 3.7, chloride 114, CO2 of 17, BUN 44, creatinine 4.7, glucose 149. Hemoglobin 9.2, hematocrit 27, platelets 192,000, white blood cell count 6.3. Troponin 0.03. ASSESSMENT AND PLAN: 1. Delirium. Improved. 2. Acute kidney injury. Unchanged. We will continue to monitor closely for improvement. We will adjust the IV fluids. 3. Insulin-dependent diabetes mellitus. Continue on the current insulin regimen. 4. Status post right femoral stent placement. Stable. 5. Hypertension. We will adjust the patient's antihypertensive regimen. 6. Right foot cellulitis. Continue with antibiotic therapy as directed by Dr. Metzger. 7. Peripheral arterial disease. Aware. Continue on Plavix. 8. Deep vein thrombosis prophylaxis. Continue on heparin. cc: MD TILA Agudelo
[2019-03-19] MEDS: MAXIPIME 1 GM in NS 50 ML IV SCH (20:19)
[2019-03-19] MEDS: COREG PO SCH (20:23)
[2019-03-19] MEDS: FLOMAX PO SCH (20:23)
[2019-03-19] MEDS: LIPITOR PO SCH (20:23)
[2019-03-19] MEDS: NORVASC PO SCH (20:26)
[2019-03-20] MEDS: LEVEMIR SUBQ SCH (00:15)
[2019-03-20] MEDS: NORCO-10 PO PRN ×4 (05:52→20:13)
[2019-03-20] MEDS: 1/2 NS 1,000 ML IV SCH ×3 (05:53→16:16)
[2019-03-20] MEDS: HUMULIN R SUBQ SCH ×4 (06:40→22:38)
[2019-03-20 06:42] LABS: HEMOGLOBIN 10.3 g/dL (14.0-18.0); MCH 28.4 PG (27-31); MCHC 34.3 g/dL (33-37); MCV 82.6 FL (81-99); MPV 11.3 FL (7.4-10.4); RBC 3.63 XMIL (4.7-6.1); RDW 13.3 % (11.5-14.5); WBC 9.69 X1000 (4.8-10.8)
[2019-03-20 06:49] LABS: CALCIUM 9.5 mg/dL (8.8-10.2); CREATININE 4.7 mg/dL (0.7-1.2); PHOSPHORUS 4.2 mg/dL (2.7-4.5); POTASSIUM 3.8 mmol/L (3.5-5.1)
[2019-03-20] MEDS: HEPARIN SUBQ SCH ×2 (10:12→20:14)
[2019-03-20] MEDS: COREG PO SCH ×2 (10:14→20:13)
[2019-03-20] MEDS: SYNTHROID PO SCH (10:14)
[2019-03-20] MEDS: PLAVIX PO SCH (10:14)
[2019-03-20] MEDS: NORVASC PO SCH ×2 (10:14→20:14)
[2019-03-20] MEDS: ZYVOX PO SCH ×2 (10:14→20:15)
--- NOTE | 2019-03-20 10:52 | PROGRESS NOTE ---
DATE: 03/20/2019 SUBJECTIVE: The patient is resting comfortably in bed. He states that his sugars have been up and down. The nursing staff states that he has been using his own insulin. OBJECTIVE: Vital Signs: Temperature 98.3 degrees, blood pressure 157/68, heart rate 77, respirations 18, O2 saturation is 100% on room air. Intake 3 L, output 2.4 L. General: This is an elderly male, sitting in bed in no acute distress. Heart: S1, S2 normal. Regular rate and rhythm. Lungs: Equal air entry bilaterally. No wheezing. No rales. No rhonchi. Abdomen: Positive bowel sounds. Soft, nontender, nondistended. Extremities: There is erythema involving the right foot, mainly between the great toe and the second toe. There is also an eschar on the great toe, as well as the second toe on the right foot. Neurologic: The patient is alert and oriented x4. LABORATORY DATA: Hemoglobin 10, hematocrit 30, platelets 227,000. Sodium 139, potassium 3.8, chloride 105, CO2 of 19, BUN 44, creatinine 4.7, glucose 119. ASSESSMENT AND PLAN: 1. Delirium. Resolved. 2. Acute kidney injury. Unchanged. The patient has adequate urine output. Further management as per the physical education department chair. 3. Insulin dependent diabetes mellitus. The patient's blood sugars are poorly controlled. However, he does have an underlying infection. Will continue with long- acting insulin and sliding scale coverage. 4. Peripheral arterial disease. Continue on Plavix. 5. Right foot cellulitis. Continue with antibiotic therapy as directed by Dr. Metzger. 6. Hypertension. Continue on Coreg and Norvasc. 7. Hypothyroidism. Continue on Synthroid. 8. s/p right femoral stent. Stable. 9. Deep vein thrombosis prophylaxis. Continue on heparin. cc: Zahra Turner MD MTDD
[2019-03-20] MEDS: DILAUDID IV PRN (12:43)
--- NOTE | 2019-03-20 16:08 | NEPHROLOGY PROGRESS NOTE ---
DATE: 03/20/2019 SUBJECTIVE: Patient is sitting up on the side of the bed. He is frustrated that his blood sugars are elevating in the afternoon. He is concerned that his medications are causing his blood sugars to rise. OBJECTIVE: Vital Signs: Temperature 98.3 degrees, pulse 90, respiratory rate 18, blood pressure 157/68. Intake 3 L, output 2.4 L. General: This is an middle-aged gentleman sitting up in bed. He is awake and alert. He is in no acute distress. HEENT: Normocephalic, atraumatic. Conjunctivae are pink. Neck: Supple without JVD. Cardiovascular: Regular rate and rhythm. Pulmonary: Clear bilaterally. No wheeze or rales. Abdomen: Soft, obese. Positive bowel sounds. Genitourinary: Voiding. Extremities: He has gauze dressings to the right foot. Trace pretibial edema. Integumentary: Skin is pale, warm, and dry. LAB DATA: WBC of 9.6, hemoglobin 10.3. Sodium 139, potassium 3.8, CO2 19, creatinine 4.7, unchanged over the last 4 days. ASSESSMENT AND PLAN: 1. Acute kidney injury, likely acute tubular necrosis secondary to vancomycin as well as contrast induced nephropathy. Urine output has been excellent. Renal function has been fairly stable. He does not have any indication for intervention at this time. 2. Electrolytes, acid-base balance anemia. His CO2 has had some modest improvement over the last 72 hours. Continue to monitor. 3. Fluid volume. He is making adequate urine. 4. Prognosis: good for renal recovery. rg Dictated by KWABENA Lima for Adolfo Aguila MD Face to face encounter, data reviewed, discussed with Mary Falcon on 03/20/19. I agree with the above assessment and plan of care. rg cc: Adolfo Aguila MD [facility]
[2019-03-20] MEDS: LIPITOR PO SCH (20:14)
[2019-03-20] MEDS: FLOMAX PO SCH (20:14)
[2019-03-20] MEDS: MAXIPIME 1 GM in NS 50 ML IV SCH (20:14)
--- NOTE | 2019-03-20 21:21 | INFECTIOUS DISEASE PROGRESS NO ---
DATE: 03/20/2019 PRESENT ILLNESS: The patient has an infection on his right foot. He also told me that he was having diarrhea. MEDICATIONS: The patient was initially on vancomycin and Zosyn. This was changed yesterday to cefepime and Zyvox. PHYSICAL EXAMINATION: Vital Signs: Temperature is 98.5 degrees, pulse 69, respirations 16, blood pressure is 136/64. General: This is a somewhat ill-appearing middle-aged male. He is in no acute distress. Head, eyes, ears, nose, and throat: He can hear my spoken words and see near objects. I did not notice any white coating of his tongue. Neck: No pain with movement. Lungs: Clear to auscultation. Cardiovascular: Heart rate is regular. Abdomen: Soft and not tender. Extremities: The patient has a large dressing around the right foot. Neurologic: Patient is alert. He can move his extremities. LAB AND X-RAY: There is no new radiographic study. A culture from the patient's right foot is pending. Creatinine is 4.7. GFR is 13. CBC shows a white count of 9690, hemoglobin 10.3, and platelet count 227,000. ASSESSMENT AND PLAN: The patient has a right foot infection. The plan is to continue Zyvox and cefepime pending the results of the foot culture. COMORBIDITIES: The patient has diabetes mellitus. He also has peripheral vascular disease. cc: Ezra Metzger MD
--- NOTE | 2019-03-20 22:00 | Carotid Study ---
DATE: 03/18/2019 STUDY: Bilateral duplex and color flow imaging of the carotid arteries performed using the GE vivid E9 ultrasound System with a 9L-D transducer. REFERRING PHYSICIAN: Zahra Turner MD HISTORY: This is a 58-year-old male. FIRE ENGINE OPERATOR: Lucy Adkins RVT. INDICATIONS: Stroke. FINDINGS: The right ICA/CCA ratio 0.96 corresponding 2% stenosis of 0 to 39 percent. The left ICA/CCA ratio 0.70 corresponding 2% stenosis of 0 to 39 percent. INTERPRETATION: Mild atherosclerotic disease of the distal common and internal carotid arteries bilaterally without evidence of a hemodynamically significant lesion in either carotid system. cc: MD Zahra Hernández MD
[2019-03-20] MEDS: NOVOLOG MIX 70/30 SUBQ SCH (22:39)
[2019-03-21] MEDS: NORCO-10 PO PRN ×6 (00:39→22:03)
[2019-03-21] MEDS: 1/2 NS 1,000 ML IV SCH ×2 (04:54→12:43)
[2019-03-21 06:25] LABS: HEMOGLOBIN 9.7 g/dL (14.0-18.0); MCH 28.5 PG (27-31); MCHC 34.6 g/dL (33-37); MCV 82.4 FL (81-99); MPV 11.4 FL (7.4-10.4); RBC 3.4 XMIL (4.7-6.1); RDW 12.9 % (11.5-14.5); WBC 6.29 X1000 (4.8-10.8)
[2019-03-21] MEDS: HUMULIN R SUBQ SCH ×4 (06:28→23:00)
[2019-03-21 07:20] LABS: POTASSIUM 3.9 mmol/L (3.5-5.1)
[2019-03-21 07:21] LABS: ALBUMIN 3.7 g/dL (3.5-5.0); CALCIUM 9.2 mg/dL (8.8-10.2); PHOSPHORUS 4.3 mg/dL (2.7-4.5)
[2019-03-21] MEDS: SYNTHROID PO SCH (08:46)
[2019-03-21] MEDS: PLAVIX PO SCH (08:46)
[2019-03-21] MEDS: ZYVOX PO SCH ×2 (08:47→20:24)
[2019-03-21] MEDS: NORVASC PO SCH ×2 (08:47→20:23)
[2019-03-21] MEDS: NOVOLOG MIX 70/30 SUBQ SCH ×2 (08:47→20:24)
[2019-03-21] MEDS: HEPARIN SUBQ SCH ×2 (08:48→20:24)
[2019-03-21] MEDS: COREG PO SCH ×2 (08:49→20:23)
[2019-03-21] MEDS: DILAUDID IV PRN (08:51)
--- NOTE | 2019-03-21 10:16 | PROGRESS NOTE ---
DATE: 03/21/2019 SUBJECTIVE: Mr. Young was admitted on 03/17/2019. A 58-year-old had a right femoral artery stent placement per Dr. Bruce and getting IV antibiotics with a Lee for infected ulcers with bacteremia and blood cultures found positive at [facility], has been getting cefepime and vancomycin and then changed to daptomycin after his renal function started worsening. On 02/27/2019, creatinine was found to be 1.1 and gradually worsened to 2.9, on 03/13 was 3.6, 03/16 4.8, appears to be dehydrated with acute kidney injury and a stent in his right femoral artery, so admitted to the hospital. Renal ultrasound, probable artifactual hyperechogenicity throughout the kidneys, did not find any obstruction. Nephrology asked to see. Dr. Aguila felt acute kidney injury likely nephrotoxic, acute tubular necrosis secondary to vancomycin and certainly he was at risk for contrast-induced nephropathy as well. Had good urine output and he did appear to be hypovolemic. Carotid Doppler done on 03/18: Mild atherosclerotic disease of the distal common and internal carotid arteries bilateral without evidence of hemodynamically significant lesions. Echocardiogram on 03/18: Normal left ventricular systolic function, no evidence of valvular abnormality, pulmonary pressure probably normal, no diastolic dysfunction. Dr. Metzger asked to evaluate. He had called Microbiology about the cultures. They only had 1 blood culture and it was negative. Did not have any culture from the right foot, which he thought was infected. He was having some diarrhea suspicious for Clostridium. Foot x-ray on 03/19: No acute process. PHYSICAL EXAMINATION: General: Exam today, he feels good, says he wants to go home. Vital signs: His temperature is 98, pulse 70, respirations 12, blood pressure 160/84. HEENT: Pupils are equal and round. Lungs: Clear in all lung [place]. Cardiovascular exam: Regular rhythm and rate without murmur or S3. Abdomen: Soft. Skin: Warm and dry. Urine output is 4300 mL. ASSESSMENT AND PLAN: 1. He had some delirium, which was resolved. 2. Acute kidney injury is unchanged. The patient has adequate urine output. 3. Insulin-dependent diabetes mellitus type 2. Blood sugars are poorly controlled but this is in the face of infection, so will continue long-acting insulin and sliding scale coverage. 4. Peripheral artery disease. He is on Plavix. Has a stent in place. 5. Right foot cellulitis. Continue antibiotic coverage per Dr. Metzger. 6. Hypertension. He is on Coreg and Norvasc. 7. Hypothyroidism on Synthroid. 8. Status post right femoral stent. 9. Continue deep vein thrombosis prophylaxis. CURRENT ORDERS: 1. Lipitor 40 mg at bedtime. 2. Flomax 0.4 mg at bedtime. 3. Coreg 25 mg q.12. 4. Heparin 5000 units subcutaneously q.12. 5. Zyvox 600 mg p.o. q.12. 6. Norvasc 5 mg p.o. b.i.d. 7. Cefepime 1 g IV q.24 hours. 8. Plavix 75 mg a day. 9. Dilaudid 1 mg IV b.i.d. p.r.n. 10.He is getting 70/30 NovoLog 35 units twice a day. 11.Synthroid 125 mcg daily. He is wanting to go home but I think I need to talk to Dr. Metzger and Dr. Aguila to make sure that he is ready for that. The patient has an infection in the right foot and he was having some diarrhea. Plan is to continue Zyvox and cefepime. Renal function: His creatinine is 4.0. Does have decent urine output. cc: Adam Fuentes MD
--- NOTE | 2019-03-21 13:23 | NEPHROLOGY PROGRESS NOTE ---
DATE: 03/21/2019 SUBJECTIVE: The patient is sitting up in bed. He is awake and alert. No complaints this morning. OBJECTIVE: Vital Signs: Temperature 97.4 degrees, pulse 69, respiratory rate 18, blood pressure 169/76. Intake 3 L, output 2.3 L. Physical Examination: General: Middle-aged gentleman resting in bed. No acute distress. HEENT: Normocephalic, atraumatic. MAGNUS. Neck: Supple, without JVD. Cardiovascular: Regular rate and rhythm. Pulmonary: Clear bilaterally. Abdomen: Soft. Positive bowel sounds. : Not inspected. He is voiding. Extremities: No clubbing, cyanosis. He has a gauze dressing to the right foot. He has some Betadine noted on that. Integumentary: Skin is warm and dry. Lab Data: Sodium 136, potassium 3.9, CO2 of 17, creatinine 4, this is an improvement. ASSESSMENT AND PLAN: 1. Acute tubular necrosis, likely vancomycin toxicity. The patient's renal function has plateaued over the last several days. His urine output has been picking up consistently during that time. Creatinine today is down to 4 (4.7). I will continue his current treatment plan. 2. Electrolytes, acid-base balance, anemia. These are acceptable. 3. Fluid volume. He had greater than 2 L of urine output yesterday. Dictated by KWABENA Lima for Adolfo Aguila MD Face to face encounter, data reviewed, discussed with Mary Falcon on 03/21/19. I agree with the above assessment and plan of care. cc: Adolfo Aguila MD [facility]
[2019-03-21] MEDS ORDERED: INSULIN PEN NEEDLES ONE (20:21)
[2019-03-21] MEDS: LIPITOR PO SCH (20:23)
[2019-03-21] MEDS: FLOMAX PO SCH (20:23)
--- NOTE | 2019-03-21 22:07 | INFECTIOUS DISEASE PROGRESS NO ---
DATE: 03/21/2019 PRESENT ILLNESS: Mr. Young is being treated for an infection to his right foot which has grown bacillus species and diphtheroids. MEDICATIONS: He has been receiving Zyvox 600 mg by mouth every 12 hours and cefepime 1 g IV every 24 hours as a renally modified dose. PHYSICAL EXAMINATION: Vital Signs: Temperature is 98.6 degrees, pulse rate 69, respiratory rate 16, blood pressure 127/64. O2 saturation 100% on room air. General: This is a somewhat ill- appearing, middle-aged gentleman. He is lying in the bed currently in no acute distress. HEENT: Atraumatic, normocephalic. Oral mucous membranes are pink and moist. Conjunctivae are pale. Neck: Supple. Trachea is midline. Respiratory: Lung sounds are clear to auscultation in the upper and middle lobes with some mild rales noted in the bases. Cardiovascular: Heart rate and rhythm are regular. Normal sinus rhythm on the monitor. Abdomen: Soft, round, and nontender. Bowel sounds are active. Neurologic: He is awake, alert, oriented, and able to move all extremities in the bed independently. Integumentary: Right foot has been painted with Betadine, and there is a dressing in place to the area of the toes. LABORATORY AND X-RAY: Today his white count is 6.29, hemoglobin 9.7, platelet count 189,000. Creatinine is 4. GFR is 15. His right foot has grown bacillus species and diphtheroids. No imaging reports today. ASSESSMENT AND PLAN: Mr. Young is being treated for right foot infection. He has been receiving Zyvox and cefepime. The right foot culture has now grown a bacillus species and diphtheroids. At this point, because of allergies to daptomycin and his poor kidney function, we will not be able to give him daptomycin or vancomycin. So we will continue the Zyvox as ordered. We will discontinue cefepime. He does have some lab work ordered for in the morning. These plans have been discussed with and recommended by Dr. Metzger. COMORBIDITIES: For Mr. Young include peripheral vascular disease and diabetes mellitus. Dictated by KWABENA Patricio for Ezra Metzger MD cc: Ezra Metzger MD [facility]ENTERAmair[facility]
[2019-03-22] MEDS: NORCO-10 PO PRN ×4 (04:17→22:18)
[2019-03-22] MEDS: 1/2 NS 1,000 ML IV SCH ×2 (04:19→12:07)
[2019-03-22 07:00] LABS: CREATININE 3.6 mg/dL (0.7-1.2); POTASSIUM 3.5 mmol/L (3.5-5.1)
[2019-03-22 07:01] LABS: ALBUMIN 3.8 g/dL (3.5-5.0); PHOSPHORUS 4.5 mg/dL (2.7-4.5)
[2019-03-22 07:09] LABS: HEMATOCRIT 27.4 % (42.0-52.0); HEMOGLOBIN 9.4 g/dL (14.0-18.0); MCH 28.2 PG (27-31); MCHC 34.3 g/dL (33-37); MCV 82.3 FL (81-99); MPV 11.5 FL (7.4-10.4); RBC 3.33 XMIL (4.7-6.1); RDW 13.3 % (11.5-14.5); WBC 7.28 X1000 (4.8-10.8)
[2019-03-22] MEDS: HUMULIN R SUBQ SCH ×3 (07:20→17:20)
[2019-03-22] MEDS: SYNTHROID PO SCH (08:26)
[2019-03-22] MEDS: COREG PO SCH ×2 (08:27→20:04)
[2019-03-22] MEDS: PLAVIX PO SCH (08:27)
[2019-03-22] MEDS: ZYVOX PO SCH ×2 (08:28→20:04)
[2019-03-22] MEDS: NORVASC PO SCH ×2 (08:28→20:04)
[2019-03-22] MEDS: HEPARIN SUBQ SCH ×2 (09:48→23:25)
[2019-03-22] MEDS: NOVOLOG MIX 70/30 SUBQ SCH ×2 (09:48→20:05)
[2019-03-22] MEDS: DILAUDID IV PRN (11:10)
--- NOTE | 2019-03-22 13:39 | NEPHROLOGY PROGRESS NOTE ---
DATE: 03/22/2019 SUBJECTIVE: The patient is sitting up on the side of the bed. He has had a little bit chills overnight, otherwise no complaints. OBJECTIVE: Vital Signs: Temperature afebrile 98.4, pulse 63, respiratory rate 13, blood pressure 160/79. Intake 2.3 L. Output 3.3 L voided. General: This is a middle-aged gentleman sitting up on the side of the bed. He is in no acute distress. HEENT: Normocephalic, atraumatic. Conjunctivae are pink. Neck: Supple. No JVD. Cardiovascular: Regular. Pulmonary: Clear bilaterally. Abdomen: Soft. No tenderness. Positive bowel sounds. : Voiding. Extremities: No clubbing or cyanosis. Trace lower extremity edema, with dressings to the right foot. Integumentary: Skin is warm and dry otherwise. LAB DATA: WBC is 7.2, hemoglobin 9.4. Sodium 141, potassium 3.5, CO2 20, creatinine 3.6 (4.0, 4.7). ASSESSMENT AND PLAN: ATN, likely vancomycin toxicity. Renal function has continued to improve. No changes to current treatment plan. From a renal perspective he can be discharged at the discretion of the primary if he has had no other issues secondary to his chills. We will plan to follow up with him in 2 weeks in the office as an outpatient with labs. Dictated by KWABENA Lima for Adolfo Aguila MD Face to face encounter, data reviewed, discussed with Mary Falcon on 03/22/19. I agree with the above assessment and plan of care. cc: Adolfo Aguila MD [facility]
--- NOTE | 2019-03-22 15:41 | DISCHARGE SUMMARY ---
ADMISSION DATE: 03/17/2019 DISCHARGE DATE: 03/22/2019 HOSPITAL COURSE: His doctor is Dr. Ez Ordonez. He came in with increased confusion, trouble speaking, 58-year-old gentleman with history of hypertension, CVA, hypothyroidism, diabetes mellitus type 2, peripheral neuropathy, persistent ulcers on the right foot, 3 weeks status post right femoral stent placement in [place]. Most of his history is taken from his daughter. Patient has expressive aphasia. He does change subjects frequently. Daughter reports increasing expressive aphasia, as well as random thoughts. He has not slept for the last 40 hours very well, and began to notice a change in speech. This was similar to when he had a stroke 10 years ago. Denied any facial drooping. No changes walking or difficulty in swallowing or strength in extremities. Mr. Young was discharged from [facility] about 3 weeks ago after having positive cultures. He was on IV vancomycin and cefepime, unaware of the source of what the culture revealed. His creatinine was monitored; Home Health creatinine 1.4 on 03/06, and they had changed him from vancomycin, daptomycin because of rising creatinine. He said he had a huge reaction, itching all over after the first dose. PAST MEDICAL HISTORY: 1. Hypertension. 2. Diabetes mellitus type 2. 3. Left basal ganglia infarct in May 2018. 4. Diabetes mellitus type 1. 5. Peripheral neuropathy. 6. Hypothyroidism. 7. Gastroesophageal reflux disease. PAST SURGICAL HISTORY: 1. Appendectomy. 2. Left shoulder surgery. 3. Right knee surgery. 4. Right femoral artery stent. ADMISSION DIAGNOSES: 1. They were concerned about possible transient ischemic attack. 2. Anemia. 3. Acute renal failure secondary to vancomycin, and had some urine retention apparently. 4. Uncontrolled diabetes mellitus type 2. 5. Hypertension. 6. Recent right femoral stent placement. 7. Urine retention. DIAGNOSTICS: He had a renal ultrasound on 03/18: Probable artifactual hypo echogenicity throughout the kidneys. No obstruction. Carotid Doppler on 03/18: Mild atherosclerotic disease of the distal common and internal carotid arteries bilaterally without evidence of hemodynamically significant lesions in either carotid system. Echocardiogram on 03/18: Normal left ventricular systolic function. No evidence of significant valvular abnormality. Pulmonary pressure is probably normal. No diastolic dysfunction. Nephrology was consulted. [place] he had acute kidney injury, most likely acute tubular necrosis secondary to vancomycin, and he is certainly at risk for contrast- induced nephropathy. His creatinine continued to rise, but he had good urine output and eventually creatinine came down from its peak and dropped down below 4. He was feeling good and felt he could probably go home on 03/22/2019. Had a foot x-ray: Showed no acute process; that was done on 03/19/2019. Infectious Disease was following. He was having some diarrhea. They checked stools. There was no sign of Clostridium difficile. Initially he was on vancomycin and Zosyn and now he is on cefepime and Zyvox. Showed steady improvement and felt he could be discharged on 03/22/2019 and will continue his current antibiotics. Note the cefepime is renally modified dose of just 1 g IV q. 24 hours, Zyvox he is getting 600 mg by mouth q. 12 hours. DISCHARGE MEDICATIONS: So, he will go home on Norvasc 5 mg b.i.d., Lipitor 40 mg at bedtime, Coreg 25 mg q. 12 hours, Plavix 75 mg daily, [place] 10 q. 4 hours p.r.n. pain. He has NovoLog mix 70/30 35 units twice a day Synthroid 125 mcg daily, takes Zyvox 600 mg q. 12 hours, and he is on Flomax 0.4 mg at bedtime, and then his cefepime 1 g q. 24 hours. cc: Adam Fuentes MD
[2019-03-22] MEDS ORDERED: INSULIN PEN NEEDLES ONE (20:00)
[2019-03-22] MEDS: FLOMAX PO SCH (20:04)
[2019-03-22] MEDS: LIPITOR PO SCH (20:05)
--- NOTE | 2019-03-22 21:12 | INFECTIOUS DISEASE PROGRESS NO ---
DATE: 03/22/2019 PRESENT ILLNESS: Mr. Young is being treated for right foot infection which has grown diphtheroids and bacillus species. MEDICATIONS: He is receiving Zyvox 600 mg by mouth every 12 hours as a single agent. PHYSICAL EXAMINATION: Vital Signs: Temperature is 97.7 degrees, pulse rate 81, respiratory rate 18, blood pressure 185/76, O2 saturation is 99% on room air. General: This is a chronically ill- appearing middle-aged gentleman he is sitting up on the side of the bed currently in no acute distress. HEENT: Atraumatic, normocephalic. Oral mucous membranes are pink and moist. Conjunctivae are pale. Neck: Supple. Trachea is midline. Cardiovascular: Heart rate and rhythm are regular. Normal sinus rhythm on the monitor. Respiratory: Lung sounds are clear to auscultation in the upper and middle lobes. Diminished in the bases. Abdomen: Soft, round and nontender. Bowel sounds are active. Integumentary: The right foot has been painted with by Betadine. There is a dressing in place to the area of the toes, which was not removed. Neurologic: He is awake, alert, and forgetful. Able to move his extremities in the bed independently. LABORATORY AND X-RAY: Today his white count is 7.28 hemoglobin 9.4, platelet count 226,000. Creatinine 3.6, GFR 18. No imaging reports today. ASSESSMENT AND PLAN: Mr. Young is being treated for right foot infection that has grown diphtheroids and bacillus species. He has been receiving Zyvox by mouth, which we will continue at this time. There was a plan to discharge him today; however, now I believe the plan is for him to go to rehab once arrangements are worked out. These plans have been discussed with and recommended by Dr. Metzger. COMORBIDITIES: For Mr. Young include peripheral vascular disease, diabetes mellitus, and acute tubular necrosis. Dictated by KWABENA Patricio for Ezra Metzger MD cc: Erza Metzger MD
[2019-03-23] MEDS: NORCO-10 PO PRN ×6 (02:09→23:54)
[2019-03-23] MEDS: HUMULIN R SUBQ SCH ×5 (06:32→21:51)
[2019-03-23 08:54] LABS: ALBUMIN 4.3 g/dL (3.5-5.0); CALCIUM 10.1 mg/dL (8.8-10.2); CREATININE 3.6 mg/dL (0.7-1.2); PHOSPHORUS 4.3 mg/dL (2.7-4.5); POTASSIUM 3.7 mmol/L (3.5-5.1)
[2019-03-23] MEDS: PLAVIX PO SCH (09:23)
[2019-03-23] MEDS: NOVOLOG MIX 70/30 SUBQ SCH ×2 (09:23→21:51)
[2019-03-23] MEDS: SYNTHROID PO SCH (09:23)
[2019-03-23] MEDS: NORVASC PO SCH ×2 (09:23→21:50)
[2019-03-23] MEDS: ZYVOX PO SCH ×2 (09:23→21:50)
[2019-03-23] MEDS: COREG PO SCH ×2 (09:23→21:50)
[2019-03-23] MEDS: HEPARIN SUBQ SCH ×2 (09:36→21:50)
[2019-03-23] MEDS: 1/2 NS 1,000 ML IV SCH ×2 (16:28→16:33)
--- NOTE | 2019-03-23 16:32 | NEPHROLOGY PROGRESS NOTE ---
DATE: 03/23/2019 SUBJECTIVE: Patient is sitting up on the side of the bed. He is waiting for rehab placement. OBJECTIVE: Vital Signs: Temperature 97.8 degrees, pulse 74, respiratory rate 15, blood pressure 161/61. Intake 500 mL. Output 2.4 L. General: Elderly gentleman, resting in bed. He is awake, alert, no acute distress. HEENT: Normocephalic, atraumatic. MAGNUS. Neck: Supple without JVD. Cardiovascular: Regular rate and rhythm. Pulmonary: Clear bilaterally. Abdomen: Obese, soft. Positive bowel sounds. : Not inspected. He is voiding. Extremities: Trace edema. No clubbing, cyanosis. Dressings continue to the right foot. Integumentary: Warm and dry. LAB DATA: Pending. ASSESSMENT AND PLAN: Acute tubular necrosis, likely vancomycin toxicity. His renal function has continued to improve over the last couple of days and excellent urine output. We will check labs while he remains in the hospital. Will plan for follow up as an outpatient 2 to 3 weeks after discharge. If he goes to rehab it can be after that, if he has serial labs drawn. Dictated by KWABENA Liam for Adolfo Aguila MD Face to face encounter, data reviewed, discussed with Mary Falcon on 03/23/19. I agree with the above assessment and plan of care. cc: Adolfo Aguila MD [facility]
[2019-03-23] MEDS ORDERED: TUMS PO PRN (17:02)
--- NOTE | 2019-03-23 17:34 | PROGRESS NOTE ---
DATE: 03/23/2019 SUBJECTIVE: Mr. Young is sitting up in a chair. Feels good. He had a good night. OBJECTIVE: Vital signs: Temperature 97.6 degrees, pulse 72, respirations 20, blood pressure 174/78. HEENT: Pupils are equal and round. Lungs: Clear in all lung [place]. Cardiovascular: Regular rhythm and rate without murmur or S3. Abdomen: Soft. Skin: Warm and dry. Urine output was 4300 mL. ASSESSMENT AND PLAN: 1. Acute tubular necrosis, likely from vancomycin toxicity. Renal function continues to improve. Good urine output. So, continue to follow. He was hoping to go to rehab and his family, but it appears he is not eligible for rehab. 2. Right foot infection has grown diphtheroids and bacillus species. He is on Zyvox 600 mg by mouth q.12 hours, single agent, and seems to be improving. 3. He has had some confusion and this hopefully will continue to improve as his renal function continues to improve. He is complaining of constipation so I will give him some milk of magnesia. It looks like he will have to go home with home health. He is just on the Zyvox now p.o. so should be able to handle that. cc: Adam Fuentes MD
[2019-03-23] MEDS: FLOMAX PO SCH (21:50)
[2019-03-23] MEDS: LIPITOR PO SCH (21:50)
[2019-03-24] MEDS: 1/2 NS 1,000 ML IV SCH ×3 (00:45→22:09)
[2019-03-24] MEDS: NORCO-10 PO PRN ×5 (04:41→22:09)
[2019-03-24] MEDS: HUMULIN R SUBQ SCH ×4 (06:35→23:28)
[2019-03-24 07:11] LABS: ALBUMIN 3.9 g/dL (3.5-5.0); CALCIUM 9.4 mg/dL (8.8-10.2); CREATININE 2.9 mg/dL (0.7-1.2); POTASSIUM 3.4 mmol/L (3.5-5.1)
[2019-03-24] MEDS ORDERED: DULCOLAX PR PRN (07:20)
--- NOTE | 2019-03-24 07:46 | PROGRESS NOTE ---
DATE: 03/24/2019 SUBJECTIVE: He had a pretty good night. He still had not had a bowel movement. It has been 7 days. He is feeling better. There is less confusion I believe. OBJECTIVE: Vital Signs: Temperature 97.7 degrees, pulse 67, respirations 18, blood pressure 167/76. HEENT: Pupils are equal and round. Lungs: Clear in all lung [place]. Cardiovascular: Regular rate without murmur or S3. Abdomen: Soft. Skin: Warm and dry. Urine output is 1900 mL. LABORATORY DATA: Blood sugar 195, 203, and 96. ASSESSMENT/PLAN: 1. Acute tubular necrosis, likely this was from vancomycin toxicity. His creatinine is improved, continues to improve. It was down to 2.9 and good urine output, so heading in the right direction. I have stopped his IV opioid and he seems to be alert and more appropriate, and I think he can go home. He is not eligible for rehab. His daughter was hoping he could get into rehab. 2. Being treated for right foot infection, growing diphtheroids and bacillus species. He is just on Zyvox 600 mg by mouth q.12 hours single agent. He still has a port in. We will leave that in. His doctor is in [place]. 3. Constipation. We have been trying milk of magnesia. I will add some MiraLAX twice a day and add Dulcolax suppository and lactulose and see if we get some effects. 4. Blood pressure well controlled. cc: Adam Fuentes MD
[2019-03-24] MEDS: COREG PO SCH ×2 (08:49→20:00)
[2019-03-24] MEDS: NORVASC PO SCH ×2 (08:49→20:00)
[2019-03-24] MEDS: PLAVIX PO SCH (08:50)
[2019-03-24] MEDS: ZYVOX PO SCH (08:50)
[2019-03-24] MEDS: HEPARIN SUBQ SCH ×2 (08:50→20:06)
[2019-03-24] MEDS: SYNTHROID PO SCH (08:50)
[2019-03-24] MEDS: LACTULOSE PO SCH ×2 (08:51→20:06)
[2019-03-24] MEDS: MILK OF MAGNESIA PO SCH (08:51)
[2019-03-24] MEDS: MIRALAX PO SCH ×2 (08:51→20:06)
[2019-03-24] MEDS: NOVOLOG MIX 70/30 SUBQ SCH ×2 (08:51→20:07)
[2019-03-24] MEDS ORDERED: PEN VK PO SCH (12:15)
[2019-03-24] MEDS: MAALOX PLUS LIQUID PO PRN (15:07)
[2019-03-24] MEDS: PEN VK PO SCH (16:35)
[2019-03-24] MEDS: CIPRO PO SCH (16:35)
--- NOTE | 2019-03-24 19:22 | INFECTIOUS DISEASE PROGRESS NO ---
DATE: 03/24/2019 PRESENT ILLNESS: The patient has a right foot cellulitis which has grown diphtheroids and bacillus species. MEDICATIONS: Currently the patient is on Zyvox as a single agent. PHYSICAL EXAMINATION: Patient has a PICC line catheter on the right side. The site is not swollen or tender. Vital Signs: Temperature is 97.6 degrees, pulse 62, respirations 22, blood pressure 138/53. General: This is a chronically ill-appearing, middle-aged male. He is in no acute distress. Head, eyes, ears, nose, and throat: He can hear my spoken words and see near objects. He does not have any white patches on his tongue. Neck: No pain with movement. Lungs: Clear to auscultation. Cardiovascular: Heart rate is regular. Abdomen: Soft and nontender. Extremities: The patient's right foot remains swollen and erythematous but gradually it is getting better. Neurologic: The patient is awake. He can move his extremities. There is no tremor. LAB AND X-RAY STUDIES: No new radiographic study. The creatinine is 2.9. GFR is 22. ASSESSMENT AND PLAN: Patient has cellulitis of the foot from which diphtheroids and bacillus species were isolated. The plan is to send him home on 2 weeks of ciprofloxacin 250 mg every 12 hours and penicillin VK 500 mg p.o. every 12 hours both being given p.o. Some of the side effects of the antibiotics, including rash, diarrhea, seizures, and tendon rupture have been explained to the patient who agrees with treatment. I have put a consult in for Dr. Rao to remove the patient's Lee catheter. COMORBIDITIES: The patient has peripheral vascular disease, diabetes mellitus and acute renal failure. cc: Ezra Metzger MD
[2019-03-24] MEDS: LIPITOR PO SCH (20:00)
[2019-03-24] MEDS: FLOMAX PO SCH (20:00)
--- NOTE | 2019-03-24 20:07 | GENERAL SURGERY CONSULTATION ---
DATE: 03/24/2019 HISTORY OF PRESENT ILLNESS: This is a pleasant 58-year-old gentleman with right-sided Lee catheter. He had the catheter placed 3 weeks ago in [place] because of positive blood cultures apparently. He has been on IV vancomycin and cefepime. He was admitted due to confusion and trouble speaking. He was found to have an elevated creatinine. PAST MEDICAL HISTORY: Positive for: 1. Hypertension. 2. Diabetes. 3. Left basal ganglia infarct. 4. Peripheral neuropathy. 5. Hypothyroidism. 6. Gastroesophageal reflux disease. PAST SURGICAL HISTORY: Previous surgery includes: 1. Appendectomy. 2. Left shoulder surgery. 3. Right knee surgery. 4. Right femoral artery stent placement. SOCIAL HISTORY: He lives at home. Denies alcohol, tobacco, or illicit drug use. MEDICATIONS: Listed. ALLERGIES: Benadryl, promethazine, and daptomycin. REVIEW OF SYSTEMS: Positive for neuropathy and difficulty with speech and confusion. Negative in all the other subsystems. PHYSICAL EXAMINATION: Vital Signs: He is afebrile. Heart rate 62, respiratory rate 20, blood pressure 138/53. Neck: Catheter is noted on the right side of his neck and coming up the upper anterior chest. Chest: Bilateral breath sounds are present. Heart: Regular rate and rhythm. Abdomen: Soft. Extremities: He has a wound on the right foot. ASSESSMENT: Mr. Young has the intravenous catheter with a history of bacteremia. I have been asked to remove his catheter by Dr. Metzger. We will plan to do that in the morning in the operating room. cc: Geovani Rao MD
--- NOTE | 2019-03-24 22:59 | NEPHROLOGY PROGRESS NOTE ---
DATE: 03/24/2019 SUBJECTIVE: He is feeling well. He states he is having to go to rehab and he is not happy about it. OBJECTIVE: Blood pressure 151/75, heart rate 68, respirations 16, afebrile.General: No acute distress. Skin: Warm and dry. Neck: Neck veins are not distended. Heart: Regular. No gallops. Lungs: Equal. No crackles. Abdomen: Soft. Bowel sounds present. Extremities: No edema. IMPRESSION/PLAN: Acute kidney injury. Nephrotoxic acute tubular necrosis. Progressive improvement. We will follow him as an outpatient once he is discharged. cc: Adolfo Aguila MD
[2019-03-25] MEDS: NORCO-10 PO PRN ×5 (02:12→23:19)
[2019-03-25] MEDS: PEN VK PO SCH ×2 (06:03→18:16)
[2019-03-25] MEDS: CIPRO PO SCH ×2 (06:03→18:17)
[2019-03-25] MEDS ORDERED: XYLOCAINE 1%/EPI 1:100,000 ONE (07:14)
[2019-03-25] MEDS ORDERED: XYLOCAINE-MPF 2% ONE (07:29)
[2019-03-25] MEDS ORDERED: DIPRIVAN 1% ONE (07:29)
[2019-03-25] MEDS ORDERED: FENTANYL ONE (07:30)
[2019-03-25] MEDS: HUMULIN R SUBQ SCH ×4 (07:35→22:58)
[2019-03-25 08:20] LABS: ALBUMIN 3.7 g/dL (3.5-5.0); CALCIUM 9.7 mg/dL (8.8-10.2); CREATININE 2.6 mg/dL (0.7-1.2); PHOSPHORUS 3.8 mg/dL (2.7-4.5); POTASSIUM 3.4 mmol/L (3.5-5.1)
[2019-03-25] MEDS ORDERED: KEFZOL 1 GM/D5W 0 GM/0 ML IVPB ONE (10:02)
[2019-03-25] MEDS: SYNTHROID PO SCH (10:46)
[2019-03-25] MEDS: HEPARIN SUBQ SCH ×2 (10:46→23:04)
[2019-03-25] MEDS: COREG PO SCH ×2 (10:46→23:03)
[2019-03-25] MEDS: PLAVIX PO SCH (10:47)
[2019-03-25] MEDS: NORVASC PO SCH ×2 (10:47→23:04)
[2019-03-25] MEDS: LACTULOSE PO SCH ×2 (10:50→23:05)
[2019-03-25] MEDS: MILK OF MAGNESIA PO SCH (10:50)
[2019-03-25] MEDS: MIRALAX PO SCH ×2 (10:50→23:06)
--- NOTE | 2019-03-25 11:12 | PROGRESS NOTE ---
DATE: 03/25/2019 SUBJECTIVE: Mr. Young is anxious to go home. His daughter does not want him to go home. We did submit his application for possibly going to [facility] He was denied any of the local rehabs. He is afebrile. We took out his subcutaneous IV access in the right chest yesterday. OBJECTIVE: Vital Signs: Temperature 97.6 degrees, pulse 93, respirations 18, blood pressure 181/77. Eyes: Pupils are equal and round. Lungs: Clear in all lung [place]. Cardiovascular exam: Regular rhythm and rate without murmur or S3. Abdomen: Abdomen is soft. Skin: Warm and dry. ASSESSMENT AND PLAN: 1. Acute tubular necrosis, progressive improvement. Renal output is good. Serum creatinine is down to 2.6 and continues to decline. 2. He has a right-sided Lee catheter. The catheter was placed 3 weeks ago in [place] because of positive blood cultures. He has been on intravenous vancomycin and intravenous cefepime, and that was taken out per Dr. Rao. 3. Diabetes mellitus type 2. Sugars running a little bit high, so make some adjustments. 4. Left basal ganglion infarct. 5. Peripheral neuropathy. 6. Hypothyroidism. 7. Gastroesophageal reflux. 8. Benign prostatic hypertrophy. REVIEW OF ORDERS: The patient is on Coreg 25 mg q. 12 hours, Flomax 0.4 mg at bedtime, Lipitor 40 mg at bedtime, Norvasc 5 mg b.i.d. I am going to go up on the Norvasc to 10 mg b.i.d. He is on Cipro 250 mg p.o. q. 12 hours, and he is on 70/30 of NovoLog twice a day, Synthroid 125 mcg a day. Getting penicillin V 500 mg p.o. q. 12 hours. MiraLAX 17 g twice a day. He is complaining of some constipation, so I will let him have milk of magnesia and he can also have Dulcolax suppository. cc: Adam Fuentes MD
[2019-03-25] MEDS ORDERED: EPHEDRINE ONE (11:54)
[2019-03-25] MEDS: NOVOLOG MIX 70/30 SUBQ SCH ×3 (13:02→23:03)
--- NOTE | 2019-03-25 14:03 | OPERATIVE NOTE ---
PROCEDURE DATE: 03/25/2019 PROCEDURE PERFORMED: Removal of Right-sided Lee catheter. SURGEON: Geovani Rao MD. ASSISTANTS: Laura and Jocelyn. PREOPERATIVE DIAGNOSIS: History of infection requiring intravenous antibiotic therapy. POSTOPERATIVE DIAGNOSIS STOP DIAGNOSIS: History of infection requiring intravenous antibiotic therapy. The patient no longer is in need of the catheter. DESCRIPTION OF PROCEDURE: Satisfactory monitoring. Anesthesia care was established. IV sedation accomplished. The right upper anterior chest and neck were prepped and draped in a sterile fashion. We anesthetized the skin over the palpated cuff. We incised the skin, carried our incision down to the cuff. We achieved satisfactory hemostasis electrocautery. We freed the cuff from the surrounding tissue. We removed the catheter as it goes into the vein by simply pulling it after the cuff was released. We cut the catheter in half and then removed the rest of the catheter from its tunnel. We placed a single 3-0 Polysorb stitch in the subcutaneous tissue. We then closed the skin with a 4-0 Polysorb subcuticular stitch. A Telfa and sterile OpSite was applied. He tolerated it well, was sent to the recovery room in satisfactory condition. cc: Geovani Rao MD
[2019-03-25] MEDS: FLOMAX PO SCH (23:04)
[2019-03-25] MEDS: LIPITOR PO SCH (23:04)
[2019-03-26] MEDS: NORCO-10 PO PRN ×5 (03:21→20:59)
[2019-03-26] MEDS: PEN VK PO SCH ×2 (05:02→16:25)
[2019-03-26] MEDS: CIPRO PO SCH ×2 (05:03→16:25)
[2019-03-26] MEDS: HUMULIN R SUBQ SCH ×4 (06:32→20:45)
[2019-03-26] MEDS: 1/2 NS 1,000 ML IV SCH (06:32)
[2019-03-26 06:51] LABS: ALBUMIN 3.9 g/dL (3.5-5.0); CALCIUM 9.1 mg/dL (8.8-10.2); CREATININE 2.8 mg/dL (0.7-1.2); PHOSPHORUS 3.8 mg/dL (2.7-4.5); POTASSIUM 3.9 mmol/L (3.5-5.1)
--- NOTE | 2019-03-26 07:39 | PROGRESS NOTE ---
DATE: 03/26/2019 SUBJECTIVE: Mr. Young is resting comfortably, sleeping. He had no complaints. OBJECTIVE: Temperature 98.6 degrees, pulse 64, respirations 18, blood pressure 124/58. Pupils are equal and round. Lungs are clear in all lung [place]. Cardiovascular Examination: Regular rhythm and rate without murmur or S3. Abdomen is soft. Skin is warm and dry. Weight 193 pounds. Urine output was 1600 mL. Lab: Creatinine down to 2.8, continues to decline. It was at 2.6 though yesterday, so down to 2.6, 2.9. ASSESSMENT AND PLAN: 1. Acute tubular necrosis, suspect from vancomycin. Urine output is good. Creatinine is around about 2.6. I expect it will continue to decline. He has good urine output. 2. Right-sided Lee catheter was removed. 3. Diabetes mellitus type 2. Sugar is under good control. 4. Left basal ganglia infarct, which is old. 5. Peripheral neuropathy. 6. Hypothyroidism. 7. Gastroesophageal reflux. 8. Benign prostatic hypertrophy. 9. Note, he is being treated for right foot cellulitis. He grew out diphtheroids and bacillus species. We are waiting to see if [facility] will accept him or if he is eligible. Suspect he may have to go home but we can arrange it for oral antibiotics right now, can send him home with 2 weeks of ciprofloxacin 250 mg every 12 hours and penicillin VK 500 mg by mouth every 12 hours. cc: Adam Fuentes MD
[2019-03-26] MEDS: SYNTHROID PO SCH (08:12)
[2019-03-26] MEDS: PLAVIX PO SCH (08:12)
[2019-03-26] MEDS: COREG PO SCH ×2 (08:13→20:50)
[2019-03-26] MEDS: NORVASC PO SCH ×2 (08:13→20:49)
[2019-03-26] MEDS: LACTULOSE PO SCH ×2 (08:14→20:47)
[2019-03-26] MEDS: HEPARIN SUBQ SCH ×2 (08:14→20:47)
[2019-03-26] MEDS: MILK OF MAGNESIA PO SCH (08:14)
[2019-03-26] MEDS: MIRALAX PO SCH ×2 (08:14→20:47)
[2019-03-26] MEDS: NOVOLOG MIX 70/30 SUBQ SCH ×3 (08:15→21:02)
[2019-03-26] MEDS: MAALOX PLUS LIQUID PO PRN (16:25)
[2019-03-26] MEDS: LIPITOR PO SCH (20:50)
[2019-03-26] MEDS: FLOMAX PO SCH (20:50)
[2019-03-27] MEDS: NORCO-10 PO PRN ×3 (02:47→14:04)
[2019-03-27] MEDS: PEN VK PO SCH ×2 (02:48→04:50)
[2019-03-27] MEDS: CIPRO PO SCH ×2 (02:48→04:50)
[2019-03-27] MEDS: 1/2 NS 1,000 ML IV SCH ×3 (04:51→11:00)
[2019-03-27] MEDS: HUMULIN R SUBQ SCH ×2 (06:51→10:54)
[2019-03-27] MEDS ORDERED: PRILOSEC PO SCH (07:00)
[2019-03-27] MEDS ORDERED: SYNTHROID PO SCH (07:00)
[2019-03-27 07:12] LABS: CALCIUM 9.7 mg/dL (8.8-10.2); CREATININE 2.4 mg/dL (0.7-1.2); PHOSPHORUS 4.7 mg/dL (2.7-4.5); POTASSIUM 3.8 mmol/L (3.5-5.1)
[2019-03-27] MEDS: LACTULOSE PO SCH (08:43)
[2019-03-27] MEDS: MIRALAX PO SCH (08:43)
[2019-03-27] MEDS: MILK OF MAGNESIA PO SCH (08:43)
[2019-03-27] MEDS: COREG PO SCH (08:44)
[2019-03-27] MEDS: PLAVIX PO SCH (08:44)
[2019-03-27] MEDS: NORVASC PO SCH (08:44)
[2019-03-27] MEDS: HEPARIN SUBQ SCH (08:45)
[2019-03-27] MEDS: NOVOLOG MIX 70/30 SUBQ SCH (08:45)
[2019-03-27 13:15] VITALS: BP 135/68
--- NOTE | 2019-03-27 13:49 | DISCHARGE SUMMARY ---
ADMISSION DATE: 03/17/2019 DISCHARGE DATE: 03/27/2019 HOSPITAL COURSE: He is a patient of Dr. Ez Ordonez, came in with increased confusion, trouble speaking. A 58-year-old gentleman with history of hypertension, CVA, hypothyroidism, diabetes mellitus type 1, peripheral neuropathy and persistent ulcers on his right foot, who is 3 weeks status post right femoral stent placement in [place]. Most of his history is taken from his daughter. He did have a little expressive aphasia reported in the past. The daughter reports increasing expressive aphasia, as well as random thoughts. The daughter states that Mr. Young slept about 48 hours and did not sleep well for a few nights prior to that, began to notice a change in speech during the day. Started having some aphasia similar to when he had a stroke about 10 years ago. Denied any facial drooping. No change in walking or swallowing. Mr. Young discharged from [facility] approximately 3 weeks prior to this, having positive cultures. He was on IV vancomycin and cefepime, unaware of the source of the culture at the time of admission. Creatinine had been monitored with home infusion. Creatinine 1.4 on 03/06/2019 and 03/13/2019. Creatinine was 2.9, and then on 03/16/2019, creatinine was 3.8. Today on admission, creatinine was 4.8. Daughter states he had been changed from vancomycin to daptomycin because of creatinine rise. PAST MEDICAL HISTORY: Again reviewed. 1. Hypertension. 2. Diabetes mellitus type 2. 3. Left basal ganglia infarct in May 2018. 4. Diabetes mellitus type 1, poorly controlled. 5. Peripheral neuropathy. 6. Hypothyroidism. 7. Gastroesophageal reflux disease. PAST SURGICAL HISTORY: 1. Appendectomy. 2. Left shoulder surgery. 3. Right knee surgery. 4. Right femoral artery stent. So, there was concern of whether he was having a new neurologic event. First of all, CT of the head without contrast, chronic ischemic changes of the brain, increasing stroke burden, but no acute process. 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 No sign of obstruction. Carotid Doppler on 03/18/2019, mild atherosclerotic disease of the distal common and internal carotid arteries bilaterally without evidence of hemodynamically significant lesions in either carotid system. Echocardiogram done on 03/18/2019, normal left ventricular systolic function. No evidence of significant valvular abnormality. Pulmonary pressures probably normal. No diastolic dysfunction. Nephrology was asked to see. They felt he had acute tubular necrosis probably secondary to the vancomycin, but he is at risk for contrast- induced nephropathy as well. This seemed to improve with just fluids and volume. Infectious Disease was consulted. The patient asked to see regarding infection in his right foot, had been treated by physicians in [place], called [facility]. They had 1 blood culture and it was negative. Did not have any culture on the right foot which thought to be infected. The patient was on Zyvox and cefepime and showed continued improvement. He finally grew diphtheroids and bacillus species from the right foot. He was receiving Zyvox 600 mg q.12 as a single agent and felt this could be changed to p.o. antibiotics. So plan is to send him home with 2 weeks of ciprofloxacin 250 mg q.12 hours, VK penicillin 500 mg twice a day for 2 weeks. His renal function continued to improve. His creatinine came down to 2.4. Continues to have good urine output. Daughter really wanted him to go to rehab but he really was not eligible for any local rehabs and [facility] I think did agree to accept him but he did not want to go. He wants to go home, so we will discharge him home. DISCHARGE MEDICATIONS: 1. Norvasc 5 mg twice a day. 2. Lipitor 40 mg a day. 3. Calcium carbonate he can have p.r.n., which is Tums. 4. Coreg 25 mg q.12h. 5. Cipro 250 mg p.o. q.12. 6. Plavix 75 mg daily. 7. Flomax 0.4 mg at bedtime. 8. MiraLAX 17 g b.i.d. 9. Pen V potassium 500 mg p.o. q.12h. 10. Prilosec 20 mg a day. 11. Milk of magnesia daily as needed. 12. Synthroid 125 mcg p.o. daily. 13. Lactulose 30 mL b.i.d. as needed for constipation. 14. He is on insulin 70/30, 25 units twice a day. His sugars became much better controlled. cc: Adam Fuentes MD
--- NOTE | 2019-03-27 17:38 | NEPHROLOGY PROGRESS NOTE ---
DATE: 03/27/2019 TIME SEEN: 0725. SUBJECTIVE: Mr. Young is resting quietly in bed. States that he is feeling better. Would like to go home. Continues with ulcer to his right foot. OBJECTIVE: Vital Signs: Temperature 98.3 degrees, blood pressure 163/71, heart rate 69, respirations 16. He is on room air. Last recorded saturation 99%. He has had 650 in. He has nothing recorded, though he has been voiding he states adequate amount. Labs: Sodium 141, potassium 3.8, chloride 102, CO2 26, BUN 43, creatinine 2.4, glucose 118. His anion gap is 13, calcium 9.7, phosphorus 4.7, albumin is 4. Patient had a previous hemoglobin of 9.4. PHYSICAL EXAMINATION: General: This is a 58-year-old white male. He is resting quietly in bed. He appears chronically ill. No acute distress. Skin: Warm and dry. HEENT: Normocephalic, atraumatic. Conjunctiva is pale pink. He has MAGNUS. Mucous membranes are dry. Neck: Supple. Trachea midline. He does have trace JVD. Cardiovascular: Regular rate and rhythm. Lungs: Clear to auscultation bilaterally. Equal excursion. On room air. Abdomen: Soft, large, round, nontender. Positive bowel sounds. Genitourinary: Not inspected. Patient has been voiding. Requested to keep strict I's and O's. Extremities: Have 1+ edema. Right foot is in a dressing, in a soft boot. Neurological: Alert and oriented x3. ASSESSMENT AND PLAN: 1. Acute kidney injury secondary to acute tubular necrosis due to nephrotoxic medications with antibiotic. The patient has had progressive improvement. His creatinine is at 2.4 from 2.8. This has continued to slowly improve over the last several days. We have requested that he keeps strict I's and O's. From our perspective, he is able to go home at the discretion of Surgery and the Primary Care. We will request weekly labs, to follow up in our office in 2 to 3 weeks. 2. Electrolytes and acid-base balance. These are acceptable. 3. Anemia. This is low but stable. I would like to thank you for allowing us to follow with this patient. Dictated by KWABENA Moore for Adolfo Aguila MD Face to face encounter, data reviewed, discussed with Jose Miguel Hernandez on 03/28/19. I agree with the above assessment and plan of care. cc: KWABENA Moore MD [facility]
== END 2019-03-27 14:16 | disposition home health service (06) | DRG 683 ==
LOC: ED 11:26 → SUATTDRO 11:27 → 4N 11:27
PROVIDERS: ATTEND Emergency Medicine